=== PATIENT | male | born 1945 | race Caucasian/White ===

== ENCOUNTER → 2023-11-01 13:44 | Outpatient (REF) | payer OTHER, SELFPAY | LOC: HWRAD 13:44 | PROVIDERS: ATTENDING PHYSICIAN Internal Medicine Critical Care Medicine; FAMILY PHYSICIAN Internal Medicine | DX: R91.1 Solitary pulmonary nodule (principal) | CPT/HCPCS: 71250 ==

== ENCOUNTER → 2023-12-21 12:44 | Outpatient (REF) | payer OTHER, SELFPAY | LOC: HWRAD 12:44 | PROVIDERS: ATTENDING PHYSICIAN Internal Medicine Critical Care Medicine; FAMILY PHYSICIAN Internal Medicine | DX: J47.9 Bronchiectasis, uncomplicated (principal); R05.3 Chronic cough; R91.1 Solitary pulmonary nodule; J84.09 Other alveolar and parieto-alveolar conditions | CPT/HCPCS: 71250 ==

== ENCOUNTER → 2024-01-06 12:04 | Outpatient (REF) | payer OTHER, SELFPAY | LOC: PET 12:04 | PROVIDERS: ATTENDING PHYSICIAN Nurse Practitioner Adult Health | DX: R91.1 Solitary pulmonary nodule (principal) | CPT/HCPCS: 78816; A9552 ==

== ENCOUNTER 2024-01-21 10:28 | Emergency (ER) | payer OTHER, SELFPAY ==
[2024-01-21 10:51] VITALS: BP 112/66
--- NOTE | 2024-01-21 11:19 | ED.GENMED ---
History of Present Illness
General
Chief Complaint: Cough
Source: patient and spouse
Time Seen by Provider: 01/21/24 11:01
Travel History
Have you had any contact with someone who has COVID-19?: No
Do you have any symptoms of coronavirus? Fever > 100 degrees, chills, cough, shortness of breath, sore throat, loss of taste or smell, muscle aches, or headache?: No
History of Present Illness
History of Present Illness:
This patient is a very pleasant 79-year-old male who states that he developed a persistent cough approximately 4 weeks ago. He notes in the last 3 days that the cough has become much more pronounced and is now productive. No hemoptysis, fever,
chills, sore throat but he does note associated rhinorrhea. He denies abdominal pain, back pain. He does note a 'sore' feeling in the chest with cough only. He notes mild dyspnea. 2 weeks ago he was put on a Z-Sunil and felt that his symptoms got
a little better. Last night he went to an urgent care and was started on Levaquin. He had a chest x-ray that was consistent with 'probable scarring' but difficult to exclude an acute process underlying. Of note, patient has a history of Achilles
tendinopathy
Past History
Past History
ED Past Medical History: Other (Pulmonary fibrosis, pulmonary nodules)
ED Past Surgical History: Orthopedic
Social History
Tobacco: Former smoker
Alcohol: Occasional
Drug: None
Personal:
Living: with family
Phy Exam
Physical Exam
Physical Exam:
GENERAL: Alert , in no apparent distress
EYE: pupils equal and reactive
NECK: Supple, no significant adenopathy.
ENT: o/p clr, mmm.
CARDIAC: Regular rate and rhythm .
LUNGS: Equal breath sounds bilaterally, no acute respiratory distress, occasional wheezing noted, bibasilar rales mild, no rhonchi, occasional cough
ABDOMEN: Soft, without focal tenderness, no r/g, no cvat
NEUROLOGICAL: Alert and oriented, no focal neuro deficits
SKIN: Warm and dry, skin intact.
MUSCULOSKELETAL: No edema, well perfused.
PSYCH: Normal and appropriate interaction.
Course
Orders/Labs/Results
Orders:
Orders
01/21/24 11:22
Electrocardiogram (*1) Stat
Reason for Study: Other
Other Reason for Exam: pneumonia
Cardiac Monitoring- Treatment ONCE
EKG- Treatment ONCE
CR Chest - 2 Views Urgent
Comment:
Reason For Exam: hx pulm fibrosis, now cough
Pulse Ox/cont/shift [RESP] Stat
Quantity: 1
01/21/24 11:45
Complete Blood Count/No Diff Urgent
Comprehensive Metabolic Panel Urgent
Lactic Acid Q4H
Comment: CANCEL 2nd LACTIC ACID IF 1st LACTIC ACID IS LESS THAN 2
NT-proBNP Urgent
Troponin I Urgent
Blood Culture Q30M
KARINA Source: Blood/Venous
Specimen Description:
01/21/24 11:47
Blood Culture Q30M
KARINA Source: Blood/Venous
Specimen Description:
01/21/24 13:44
Amoxicillin 875 mg/Clav 125 mg [Augmentin 875 mg/125 mg] 1 tablet PO NOW STA
01/21/24 13:46
Cefdinir [Omnicef] 300 mg PO NOW STA
Doxycycline [Vibramycin] 100 mg PO NOW STA
Abnormal Lab Results
01/21/24
11:45
RBC 4.16 L 10^6/uL
(4.70-6.10)
MCV 98.6 H fL
(80.0-94.0)
MCH 34.1 H pg
(27.0-31.0)
MPV 10.5 H fL
(7.4-10.4)
01/21/24 11:45
01/21/24 11:45
Vital Signs
Initial and Last Documented VS:
Initial Vital Signs
Temp Pulse Resp BP Pulse Ox
98.0 F 75 16 112/66 98
01/21/24 10:51 01/21/24 10:51 01/21/24 10:51 01/21/24 10:51 01/21/24 10:51
Last Documented Vital Signs
Temp Pulse Resp BP Pulse Ox
98.0 F 67 19 124/68 95
01/21/24 10:51 01/21/24 13:30 01/21/24 13:30 01/21/24 13:00 01/21/24 13:00
*Critical Care Note
Total Time (30-74mins, 75-104mins- exclusive of procedures): Not Applicable
Update Note
Update Note:
Patient presents to the Emergency Department with __cough
Number and Complexity of Problems Addressed at the Encounter
� Chronic conditions affecting care:
� Acute Exacerbation and/or Progression of Chronic Illness:
� Differential Diagnosis includes: But not limited to medication related cough, reflux, pneumonia, bronchitis, etc.
Amount and/or Complexity of Data to be Reviewed and Analyzed
� I performed an independent evaluation of and my interpretation is:
EKG: Read by me, normal sinus rhythm, normal rate, normal axis, no ischemia
CT:
Xrays: Chest x-ray read by radiology, small right-sided pneumonia noted
Laboratory Studies: Generally unremarkable
Other:
� Review of other/old records reveals:
� Clinical information was obtained by an independent historian: who is at bedside
� Prescriptions/Medications Considered but not given:
� Further testing considered but not performed:
Risk of Complications and/or Morbidity or Mortality of Patient Management
� Social determinants of health affecting care:
� Discussion with other providers (PCP, Hospitalists, Consultants, etc):
� Escalation of care including admission/observation vs risk of discharge considered: I advised patient to immediately discontinue Levaquin that he was prescribed and to no longer take fluoroquinolones given his history of
Achilles tendinopathy.
1:49 PM extensive workup here, patient remains well-appearing, no hypoxia, no respiratory distress. I did discuss with him his findings and recommendation to change/add antibiotics. Case discussed with Dr. LEDBETTER aware of history physical etc.,
recommend cefdinir and Doxy x 5 to 7 days and then resume his Zithromax. This has been ordered
ED Attending Note
-
Portions of this chart may have been created with voice recognition software.� Occasional wrong word or��sound alike� substitutions may have occurred due to the inherent limitations of voice recognition software.
Discharge Plan
Departure
Patient Disposition: Home (Routine Discharge)
Date of Disposition: 01/21/24
Time of Disposition: 13:44
Patient with high blood pressure during this ER visit?: Yes
Condition: Good
Discharge Problem:
Pneumonia
Instructions: Pneumonia, Adult (DC), BLOOD PRESSURE
Prescriptions:
New
cefdinir 300 mg capsule
300 mg PO BID Qty: 14 0RF
doxycycline hyclate 100 mg capsule
100 mg PO BID 7 Days Qty: 14 0RF
No Action
sennosides [senna] 1 TABLET tablet
2 tab PO BID 0RF
acetaminophen [Tylenol Extra Strength] 500 MG tablet
1,000 mg PO Q6H Qty: 60 0RF
Rx Instructions:
Do not exceed >4000 mg daily.
docusate sodium 100 MG capsule
100 mg PO BID 0RF
tramadol 50 MG tablet
50 mg PO Q6HPRN PRN (Reason: moderate-severe pain) Qty: 30 0RF
Rx Instructions:
1 tab moderate pain or 2 if pain severe
Dx lami
ongoing therapy
cephalexin 500 MG capsule
500 mg PO Q6H 5 Days Qty: 20 0RF
Rx Instructions:
Start upon discharge and take every 6 hours until finished.
Take with probiotic.
Saccharomyces boulardii 250 MG capsule
250 mg PO BID Qty: 10 0RF
Rx Instructions:
Over the counter. Take while on Keflex.
If unavailable, choose another probiotic.
Referrals:
Liam Greco MD [Family Provider] -
Activity Restrictions/Additional Instructions:
PLEASE CONTACT YOUR PULMONARY DOCTOR THIS WEEK FOR PROMPT FOLLOW-UP. DISCONTINUE THE ZITHROMAX UNTIL YOU FINISH THE ANTIBIOTICS THAT HAD PRESCRIBED TO YOU TODAY, THEN RESUME THE ZITHROMAX. IF YOU DEVELOP PERSISTENT FEVER, INCREASING OR PERSISTENT
COUGH, TROUBLE BREATHING, CHEST PAIN, OR OTHER WORRISOME SIGNS, PLEASE RETURN TO THE ER IMMEDIATELY
Interventions
Interventions:
*Risk Screen - Suicide Last Done: 01/21/24 11:57
*General Assessment Last Done: 01/21/24 11:57
*Neglect/Abuse Screening Last Done: 01/21/24 11:57
ED- Fall Risk Assessment Last Done: 01/21/24 11:57
*ED COVID-19 Vaccine History Last Done: 01/21/24 10:51
ED- Pulmonary Assessment Last Done: 01/21/24 11:57
Discharge Date and Time
Print Language: SPANISH
[2024-01-21 11:51] VITALS: BMI 22.1
[2024-01-21 11:57] LABS: Hemoglobin 14.2 g/dL (13.0-18.0); Mean Corp Hgb Conc. 34.6 g/dL (33.0-37.0); Mean Corpuscular Hgb 34.1 pg (27.0-31.0); Mean Corpuscular Volume 98.6 fL (80.0-94.0); Mean Platelet Volume 10.5 fL (7.4-10.4); Platelet Count 259 10^3/uL (130-400); Red Blood Cell Count 4.16 10^6/uL (4.70-6.10); Red Cell Dist. Width 13.2 % (11.5-14.5); White Blood Cell Count 9.3 10^3/uL (4.8-10.8)
[2024-01-21 12:04] VITALS: BP 128/72
[2024-01-21 12:09] LABS: ALT (SGPT) 19 U/L (0-50); AST (SGOT) 28 U/L (17-59); Albumin 4.1 g/dl (3.5-5.0); Alkaline Phosphatase 73 U/L (38-126); Blood Urea Nitrogen 13 mg/dl (9-20); Calcium 9.6 mg/dl (8.4-10.2); Carbon Dioxide 26 mmol/L (22-30); Chloride 105 mmol/L (98-107); Estimated Creatinine Clearance 64 ml/min; Glucose 97 mg/dl (70-99); Lactic Acid 0.7 mmol/L (0.7-2.0); Potassium 4.4 mmol/L (3.5-5.1); Sodium 138 mmol/L (135-145); Total Bilirubin 0.7 mg/dl (0.2-1.3); eGFR > 60.00
[2024-01-21 12:20] LABS: Troponin I < 0.012 ng/ml
[2024-01-21 12:38] LABS: NT-proBNP 126 pg/ml
[2024-01-21 13:00] VITALS: BP 124/68
[2024-01-21] MEDS: OMNICEF 300 MG PO (13:58)
[2024-01-21] MEDS: VIBRAMYCIN 100 MG PO (13:58)
[2024-01-21 14:00] VITALS: BP 132/87
== END 2024-01-21 14:27 | disposition home or self-care (01) ==
LOC: EMR 10:28
PROVIDERS: EMERGENCY PHYSICIAN Emergency Medicine; FAMILY PHYSICIAN Internal Medicine; REFERRING PHYSICIAN Internal Medicine Critical Care Medicine
DX: J18.9 Pneumonia, unspecified organism (principal); R03.0 Elevated blood-pressure reading, without diagnosis of hypertension; J84.10 Pulmonary fibrosis, unspecified; Z87.891 Personal history of nicotine dependence; Z91.048 Other nonmedicinal substance allergy status
CPT/HCPCS: 99285; 94760; 71046; 80053; 83605; 83880; 84484; 85027; 87040; 93005

== ENCOUNTER → 2024-02-09 09:53 | Outpatient (REF) | payer OTHER, SELFPAY | LOC: HWRAD 09:53 | PROVIDERS: ATTENDING PHYSICIAN Internal Medicine Critical Care Medicine; FAMILY PHYSICIAN Internal Medicine | DX: J47.9 Bronchiectasis, uncomplicated (principal); R91.1 Solitary pulmonary nodule | CPT/HCPCS: 71250 ==

== ENCOUNTER 2024-02-29 06:15 | Day surgery (SDC) | payer OTHER, SELFPAY ==
[2024-02-27 08:45] LABS: INR 1.09
[2024-02-27 08:46] LABS: APTT 31.9 Sec (23.4-35.0)
[2024-02-27 14:02] VITALS: BMI 21.1
[2024-02-29] VITALS (9 sets, daily range): BP systolic 114–137; BP diastolic 66–99
== END 2024-02-29 11:45 | disposition home or self-care (01) ==
LOC: GI 06:15
PROVIDERS: ATTENDING PHYSICIAN Internal Medicine Critical Care Medicine; FAMILY PHYSICIAN Internal Medicine
DX: C34.11 Malignant neoplasm of upper lobe, right bronchus or lung (principal); C77.1 Secondary and unspecified malignant neoplasm of intrathoracic lymph nodes; R91.8 Other nonspecific abnormal finding of lung field; R59.0 Localized enlarged lymph nodes; Z87.891 Personal history of nicotine dependence
CPT/HCPCS: 31629; 31623; 31625; 31624; 31654; 31627; 88173; 88305; 71045; 76000; 81459; 85610; 85730; 87015; 87070; 87102; 87116; 87205; 88112; 88333; 88341; 88342; 94640; C1887

== ENCOUNTER 2024-03-13 10:11 | Outpatient (RCR) | payer OTHER, SELFPAY | END 2024-03-13 23:59 | disposition home or self-care (01) | LOC: RST 10:11 | PROVIDERS: ATTENDING PHYSICIAN Internal Medicine Critical Care Medicine; FAMILY PHYSICIAN Internal Medicine | DX: R13.14 Dysphagia, pharyngoesophageal phase (principal) | CPT/HCPCS: 92610 ==

== ENCOUNTER → 2024-03-26 08:14 | Outpatient (REF) | payer OTHER, SELFPAY ==
[2024-03-26 08:47] VITALS: BP 137/64; BP_SYST 65
[2024-03-26] MEDS: ANCEF 10 IV (08:56)
[2024-03-26 10:50] VITALS: BP 123/61; BP_SYST 72
[2024-03-26 11:10] VITALS: BP 128/59; BP_SYST 68
== END ==
LOC: RADI 08:14
PROVIDERS: ATTENDING PHYSICIAN Internal Medicine Hematology & Oncology; FAMILY PHYSICIAN Internal Medicine
DX: C34.11 Malignant neoplasm of upper lobe, right bronchus or lung (principal)
CPT/HCPCS: 36561; 76937; 77001; 99152; 99153; C1788

== ENCOUNTER 2024-04-11 17:02 | Observation (INO) | payer OTHER, SELFPAY ==
[2024-04-11 13:42] VITALS: BMI 21.7
[2024-04-11 13:49] VITALS: BP 112/75
--- NOTE | 2024-04-11 13:55 | ED.PDOC.TRB ---
ED Provider Triage
-
Patient seen by provider in Triage?: Seen in Triage
A medical screening examination has been initiated by a qualified medical provider. Based on the assessment performed at this time, it has been determined that an emergent medical condition may exist and the patient has been informed that further
medical evaluation and possible additional diagnostic testing may be needed.
HPI: This is a medical evaluation conducted in person to initiate diagnostic evaluation and provide initial therapeutics. Please see further documentation by the treating clinician.
GENERAL: Alert ,tearful
EYE: No visual abnormalities.
NECK: Trachea midline
ENT: No visible abnormalities.
LUNGS: No acute respiratory distress
NEUROLOGICAL: Alert and oriented
SKIN: no visible lesions.
MUSCULOSKELETAL: Moving extremities normally
PSYCH: Normal and appropriate interaction.
79-year-old male being sent in by radiology with concerning findings on MRI of potential occipital and temporal and frontal acute to subacute stroke. Patient does have intermittent vague visual symptoms as well as generalized weakness but no
focality to initial neurologic examination during triage. Patient is generally well-appearing. These findings and my initial exam was discussed with neurology. Neurology is requesting CT angiogram of the head and neck to supplement initial
imaging. Also consideration of anticoagulation that will need to be discussed with oncology considering possibility of hypercoagulable state due to cancer history. CTA ordered pending additional provider assessment.
[2024-04-11 14:13] LABS: % Basophils 0.5 % (0-2); % Eosinophils 4.1 % (0-6); % Immature Granulocytes 0.2 % (0-0.5); % Lymphocytes 25.6 % (20.5-51.1); % Monocytes 7.8 % (1.7-9.3); % Neutrophils 61.8 % (42.2-75.2); Absolute Eosinophils 0.2 10^3/uL (0-0.7); Absolute Lymphocytes 1.1 10^3/uL (1.2-3.4); Absolute Monocytes 0.3 10^3/uL (0.1-0.6); Absolute Neutrophils 2.5 10^3/uL (1.4-6.5); Hematocrit 38.4 % (39.0-52.0); Hemoglobin 12.9 g/dL (13.0-18.0); Mean Corp Hgb Conc. 33.6 g/dL (33.0-37.0); Mean Corpuscular Hgb 32.7 pg (27.0-31.0); Mean Corpuscular Volume 97.5 fL (80.0-94.0); Mean Platelet Volume 11.1 fL (7.4-10.4); Nucleated Red Blood Cells % 0 % (-); Platelet Count 112 10^3/uL (130-400); Red Blood Cell Count 3.94 10^6/uL (4.70-6.10); Red Cell Dist. Width 12.5 % (11.5-14.5); White Blood Cell Count 4.1 10^3/uL (4.8-10.8)
[2024-04-11 14:30] LABS: INR 1.07; PT 13.9 Sec (11.4-14.6)
[2024-04-11 14:31] LABS: APTT 31.7 Sec (23.4-35.0)
[2024-04-11 14:40] LABS: ALT (SGPT) 24 U/L (0-50); AST (SGOT) 26 U/L (17-59); Albumin 4.2 g/dl (3.5-5.0); Alkaline Phosphatase 69 U/L (38-126); Blood Urea Nitrogen 21 mg/dl (9-20); Calcium 9.2 mg/dl (8.4-10.2); Carbon Dioxide 25 mmol/L (22-30); Chloride 103 mmol/L (98-107); Estimated Creatinine Clearance 68 ml/min; Glucose 118 mg/dl (70-99); Potassium 4.7 mmol/L (3.5-5.1); Sodium 139 mmol/L (135-145); Total Bilirubin 0.6 mg/dl (0.2-1.3); Total Protein 6.9 g/dl (6.3-8.2); eGFR > 60.00
[2024-04-11 15:00] VITALS: BP 99/63
[2024-04-11] MEDS: PLAVIX 75 MG PO (15:24)
[2024-04-11] MEDS: ASPIRIN 325 MG PO (15:24)
--- NOTE | 2024-04-11 16:18 | ED.GENMED ---
History of Present Illness
General
Chief Complaint: Abnormal Lab Value
Source: patient, spouse and physician (Oncologist who called ahead)
Exam Limitations: none
Time Seen by Provider: 04/11/24 15:03
Nursing documentation reviewed up to this point in time: agreed with
History of Present Illness
History of Present Illness:
79-year-old male with history as documented notable for small cell lung cancer (follows with Dr. Manzanares for oncology) who presents to the emergency department for evaluation of dizziness and fatigue, visual disturbances; had outpatient MRI today that
showed acute versus subacute stroke. Patient reports that he received first round of chemotherapy for lung cancer last week. He says over the past few days he has noticed significant fatigue and lack of strength. He says that he has had some
dizziness and balance issues. He says that he has been having visual disturbances�no vision loss but says that he has noticed some floaters and flashes in his peripheral vision. He had an outpatient MRI this morning to evaluate for brain
metastasis due to the symptoms and MRI showed acute versus subacute stroke. Referred to the ER for evaluation. He denies any focal weakness or numbness. Denies any change in his speech. He denies any falls or head trauma. He is not on any blood
thinners. Denies any history of A-fib.
Past History
Past History
ED Past Medical History: Other (Pulmonary fibrosis, pulmonary nodules)
ED Past Surgical History: Orthopedic
Social History
Tobacco: Former smoker
Alcohol: Occasional
Drug: None
Personal:
Living: with family
Review of Systems
Review of Systems
All Other Systems: ROS reviewed and negative except as documented in HPI and ROS
Constitutional: Reports fatigue; Denies fever
Respiratory: Denies trouble breathing
Cardiac: Denies chest pain or palpitations
ABD/GI: Denies abdominal pain or nausea
: Denies flank pain
Musculoskeletal: Denies neck pain or back pain
Neurological: Reports dizzy and other (Visual disturbance); Denies headache, weakness or numbness
Phy Exam
Physical Exam
Physical Exam:
General: Awake, alert, oriented x3; no acute distress
Head: Normocephalic, atraumatic
Eyes: Conjunctiva normal, EOMI without nystagmus, pupils equal round and reactive to light bilaterally, visual duran are intact
Throat: Airway intact, handling secretions
Neck: Trachea midline, supple without meningismus
Lungs: Clear to auscultation bilaterally, no wheezing, rales, rhonchi
Heart: Regular rate and rhythm, no murmurs, gallops, or rubs
Neuro: Cranial nerves intact 2 through 12, speech fluid with no dysarthria or aphasia, no limb ataxia, motor and sensory function is intact and symmetric upper and lower extremities
Skin: no rash
Extremities: No edema in extremities, equal pulses in all extremities
Scores
NIH Stroke Score
Level of Consciousness: 0 - Alert
LOC Questions: 0-Answers both correctly
LOC Commands: 0-Performs both correctly
Best Horizontal Gaze: 0-Normal
Visual Duran: 0=Normal, no visual loss
Facial Palsy: 0=Normal, symmetrical
Motor - Right Arm: 0=No drift 10 seconds
Motor - Left Arm: 0=No drift 10 seconds
Motor - Right Le-No drift 5 seconds
Motor - Left Le-No drift 5 seconds
Limb Ataxia: 0-Absent
Sensation: 0-Normal
Best Language: 0-No aphasia
Dysarthria: 0-Normal
Extinction and Inattention: 0-No abnormality
Total Score:: 0
Thrombolytic Contraindication
Inclusion and Exclusion criteria reviewed: Yes
Reasons for NON-Tx with Thrombolytics ABSOLUTE Exclusions: Greater than 4.5 hrs from onset of sxs
Heart Failure Risk
Heart Failure Risk Score: Not Applicable
Heart Score for Chest Pain Patients
STEMI patient?: Not applicable
Withdrawal Assessment of Alcohol
Withdrawal Assessment Completed?: Not applicable
Course
Orders/Labs/Results
Orders:
Orders
04/11/24 13:51
Bedside Glucose- Treatment ONCE
04/11/24 13:52
Electrocardiogram (*1) Stat
Reason for Study: Other
Other Reason for Exam: neuro symptoms
EKG- Treatment ONCE
04/11/24 14:05
Complete Blood Count/With Diff Urgent
Comprehensive Metabolic Panel Urgent
PTT Urgent
Prothrombin Time Urgent
04/11/24 15:12
NEUROLOGY CONSULT Urgent
Consulting Provider: Cesia Hagen
Was physician already notified: Yes
Aspirin 325 mg PO NOW STA
Clopidogrel Bisulfate [Plavix] 75 mg PO NOW STA
Abnormal Lab Results
04/11/24
14:05
WBC 4.1 L 10^3/uL
(4.8-10.8)
RBC 3.94 L 10^6/uL
(4.70-6.10)
Hgb 12.9 L g/dL
(13.0-18.0)
Hct 38.4 L %
(39.0-52.0)
MCV 97.5 H fL
(80.0-94.0)
MCH 32.7 H pg
(27.0-31.0)
Plt Count 112 L 10^3/uL
(130-400)
MPV 11.1 H fL
(7.4-10.4)
Absolute Lymphs (auto) 1.1 L 10^3/uL
(1.2-3.4)
BUN 21 H mg/dl
(9-20)
Glucose 118 H mg/dl
(70-99)
04/11/24 14:05
04/11/24 14:05
Vital Signs
Initial and Last Documented VS:
Initial Vital Signs
Temp Pulse Resp BP Pulse Ox
36.9 C 76 18 112/75 97
04/11/24 13:49 04/11/24 13:49 04/11/24 13:49 04/11/24 13:49 04/11/24 13:49
Last Documented Vital Signs
Temp Pulse Resp BP Pulse Ox
36.9 C 85 16 99/63 96
04/11/24 13:49 04/11/24 15:00 04/11/24 15:00 04/11/24 15:00 04/11/24 15:00
MDM/Problems Addressed
Differential Diagnosis Includes:
CVA
MDM/Problems Addressed:
79-year-old male presents with dizziness and visual disturbances, fatigue in the setting of recent chemotherapy; outpatient MRI today showed acute versus subacute CVA. Vitals normal. Exam as above. Discussed with neurology�recommended MRA, will
treat with aspirin and Plavix. Admit for continued evaluation and workup of acute versus subacute stroke. Case discussed with hospitalist for admission.
Chronic conditions affecting care:
Lung cancer
*Radiology
Radiology exam reviewed: radiology read reviewed
*Pulse Oximetry
Patient hypoxic: no
*EKG
Interpreted by ED Provider?: Yes
Heart Rate: 86
Rate: normal
Rhythm: sinus
[place]: normal axis
Interval: normal interval
QRS Pattern: normal QRS
Ischemia: non-specific ST changes
*Critical Care Note
Total Time (30-74mins, 75-104mins- exclusive of procedures): Not Applicable
Data Reviewed
Review of Other/Old Records Reveals: Labs and Records
Source: patient, records and physician (Oncologist called ahead)
Patient Management
Discussion with other providers: Hospitalist (Discussed with hospitalist) and Director Of Corporate Communications (Discussed with neurology)
Escalation/DeEscalation of care consider admission/obs:
Admission indicated
ED Attending Note
-
Portions of this chart may have been created with voice recognition software.� Occasional wrong word or��sound alike� substitutions may have occurred due to the inherent limitations of voice recognition software.
Discharge Plan
Departure
Patient Disposition: Admit
Date of Disposition: 04/11/24
Time of Disposition: 16:23
Admit to doctor: Do
Presentation/result/management discussed w/ accepting MD/DO: Hospitalist
Discharge Problem:
CVA (cerebrovascular accident)
Prescriptions:
No Action
azithromycin 250 mg Tablet
250 mg PO DIRECTED
Rx Instructions:
M, W, F
albuterol sulfate 1.25 mg/3 mL Solution For Nebulization
1.25 mg INHALATION HS
fluticasone propion-salmeterol [Advair HFA] 230-21 mcg/actuation Hfa Aerosol Inhaler
1 puff INHALATION DAILY
acetaminophen [Tylenol Extra Strength] 500 MG tablet
1,000 mg PO Q6H
Rx Instructions:
Do not exceed >4000 mg daily.
calcium carbonate [Tums] 200 mg calcium (500 mg) Tablet,Chewable
200 mg PO PRN PRN (Reason: GERD)
lorazepam [Ativan] 0.5 mg Tablet
0.5 mg PO HS PRN (Reason: sleep/anxiety)
mecobalamin (vitamin B12) [B12 Active] 1,000 mcg Tablet,Chewable
1,000 mcg PO DIRECTED
Pepto-Bismol Ultra 525 mg Tablet
525 mg PO PRN PRN (Reason: GI)
doxycycline hyclate 100 mg Capsule
100 mg PO BID
cefdinir 300 mg Capsule
300 mg PO BID
Interventions
Interventions:
*Risk Screen - Suicide Last Done: 04/11/24 13:55
*General Assessment Last Done: 04/11/24 13:55
*Neglect/Abuse Screening Last Done: 04/11/24 13:55
ED- Fall Risk Assessment Last Done: 04/11/24 14:34
*ED COVID-19 Vaccine History Last Done: 04/11/24 14:34
Discharge Date and Time
Print Language: MALAYSIAN
--- NOTE | 2024-04-11 16:57 | HPS.HSE ---
Family Physician
-
Family Physician: Artemio Manzanares
Chief Complaint
-
visual symptoms
History of Present Illness
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
with flashes of light in his peripheral vision, fatigue, since starting chemotherapy last week. Patient had outpatient MRI today which showed acute versus subacute stroke and was told to come to the hospital.
Patient received first round of chemotherapy for lung cancer last week. He follows Dr. Manzanares.
Over the past few days he has noted significant fatigue and lack of strength. He has had some dizziness and balance dysfunction. He has noted some floaters and flashes in his peripheral vision. He had outpatient MRI this morning evaluate for
brain metastases which showed acute versus subacute stroke. He was referred to the emergency room. He denies any focal weakness or numbness or difficulty speaking or swallowing. He denies any falls or head trauma.
He denies any nausea vomiting or diarrhea. He denies any fevers or chills. He denies any cough. He has been having indigestion and burping since starting chemotherapy.
Denies any smoking or alcohol use.
Medical History
Past Medical History
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
Past Surgical History: Reports Other ( Orthopedic)
Social History
Tobacco: Non-smoker
Alcohol: None
Drug: None
Family History
Family History: Not pertinent
Allergies / Home Medications
Allergies reflects when Allergies were last updated in [facility].
Home Medications with original date entered in [facility]
Allergy/Medication List:
Allergies
Allergy/AdvReac Type Severity Reaction Status Date / Time
pollen extracts Allergy Sinus Verified 04/11/24 13:47
congestion
hydromorphone [From Dilaudid] AdvReac Nausea / Verified 04/11/24 13:47
Vomiting
Home Medications
acetaminophen 500 mg tablet (Tylenol Extra Strength) 1,000 mg PO Q6HPRN PRN mild pain 02/28/24
albuterol sulfate 1.25 mg/3 mL solution for nebulization 1.25 mg inhalation R BIDPRN PRN sob 02/28/24
azithromycin 250 mg tablet 250 mg PO MOWEFR 02/28/24
fluticasone propionate 230 mcg-salmeterol 21 mcg/actuation HFA inhaler (Advair HFA) 1 puff inhalation R BID 02/28/24
lorazepam 0.5 mg tablet (Ativan) 0.5 mg PO HSPRN PRN sleep/anxiety 02/28/24
carbamide peroxide 6.5 % ear drops 5 drp LEFT EAR DAILYPRN PRN earwax 04/11/24
dexamethasone 4 mg tablet 8 mg PO DAILYPRN PRN take day before and day afr Tx 04/11/24
folic acid 1 mg tablet 1 mg PO DAILY 04/11/24
ibuprofen 200 mg tablet 400 mg PO Q6HPRN PRN mild pain 04/11/24
lidocaine-prilocaine 2.5 %-2.5 % topical cream 1 applic topical DAILYPRN PRN apply before port access 04/11/24
omeprazole 20 mg capsule,delayed release 20 mg PO BID 04/11/24
Review of Systems
-
History Source: Patient
A 12 point ROS was completed and negative except as noted: Yes
Constitutional: Reports No Symptoms
EENT: Reports No Symptoms
Respiratory: Reports No Symptoms
Cardiac: Reports No Symptoms
Abdomen/GI: Reports No Symptoms
: Reports No Symptoms
Musculoskeletal: Reports No Symptoms
Skin: Reports No Symptoms
Neurological: Reports See HPI
Endocrine: Reports No Symptoms
Hematologic/Lymphatic: Reports No Symptoms
Psych: Reports No Symptoms
Physical Exam
Vital Signs
Vital Signs
Temp Pulse Resp BP Pulse Ox
98.4 F 85 16 99/63 96
04/11/24 13:49 04/11/24 15:00 04/11/24 15:00 04/11/24 15:00 04/11/24 15:00
Physical Exam
General: Well Developed, Well Nourished and No Apparent Distress
HEENT: NormoCephalic, Moist mucous membranes and Atraumatic
Respiratory: Clear
Cardiac: S1/S2 and Regular Rhythm; No Murmur or Rub
GI: Soft, Non Tender, Non Distended and Normal Bowel Sounds; No Organomegaly
Rectal: Deferred by Provider
Musculoskeletal: No Clubbing, No Cyanosis and No Edema
Skin: No Rash
Neuro: Nonfocal/grossly intact
Laboratory Results
-
04/11/24 14:05
04/11/24 14:05
Laboratory Results
PT 13.9 Sec (11.4-14.6) 04/11/24 14:05
INR 1.07 04/11/24 14:05
APTT 31.7 Sec (23.4-35.0) 04/11/24 14:05
Total Bilirubin 0.6 mg/dl (0.2-1.3) 04/11/24 14:05
AST 26 U/L (17-59) 04/11/24 14:05
ALT 24 U/L (0-50) 04/11/24 14:05
Alkaline Phosphatase 69 U/L (38-126) 04/11/24 14:05
Data Reviewed
-
Lab Data: Labs Reviewed by me
Old Records: Reviewed
Impression/Plan
-
IMPRESSION:
PLAN:
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
# Small foci of acute/subacute infarct involving posterior medial right occipital lobe, anterior medial right frontal lobe
-No neurological deficits on examination
-Telemetry
-EKG shows normal sinus rhythm
-Aspirin and Plavix
-Check A1c and lipid panel
-Check MRA head and neck
-Check echo
-Neurology consulted
-PT/OT
Constipation
-Had bowel movement this morning
-MiraLAX if needed
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
-Continue prophylactic azithromycin
History of ocular migraines
Left ear cerumen impaction
-Continue Debrox
Idiopathic pulmonary fibrosis
History of asymptomatic sinus bradycardia
Lumbar spinal stenosis
-continue ibuprofen PRN
Hyperlipidemia
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
GERD
-Continue omeprazole
Anxiety
-Continue Ativan
DNR/DNI
DVT prophylaxis�SCDs
Regular diet
[2024-04-11] MEDS: ADVAIR HFA 230/21 MCG INHALER 1 PUFF INH (19:29)
[2024-04-11 19:37] VITALS: BP 104/61
[2024-04-11] MEDS: PROTONIX 40 MG PO (21:21)
[2024-04-11] MEDS: ZITHROMAX 250 MG PO (21:21)
[2024-04-11 21:30] VITALS: BP 120/76
[2024-04-11 22:00] VITALS: BP 127/64
[2024-04-12] VITALS (8 sets, daily range): BP systolic 120–130; BP diastolic 64–81; PULSE 73–78
[2024-04-12 06:34] LABS: Hemoglobin 11.9 g/dL (13.0-18.0); Mean Corpuscular Hgb 33.7 pg (27.0-31.0); Mean Corpuscular Volume 99.2 fL (80.0-94.0); Mean Platelet Volume 11.5 fL (7.4-10.4); Red Blood Cell Count 3.53 10^6/uL (4.70-6.10); Red Cell Dist. Width 12.4 % (11.5-14.5); White Blood Cell Count 3.5 10^3/uL (4.8-10.8)
[2024-04-12 07:11] LABS: Blood Urea Nitrogen 16 mg/dl (9-20); Calcium 8.9 mg/dl (8.4-10.2); Carbon Dioxide 26 mmol/L (22-30); Chloride 104 mmol/L (98-107); Estimated Creatinine Clearance 77 ml/min; Glucose 90 mg/dl (70-99); HDL Cholesterol 59 mg/dl; LDL Cholesterol, Calculated 102 mg/dl; Potassium 4.1 mmol/L (3.5-5.1); Sodium 138 mmol/L (135-145); Total Cholesterol 173 mg/dl (50-199); Triglyceride 62 mg/dl (10-149); Very Low Density Lipoprotein 12 mg/dl (0-30); eGFR > 60.00
[2024-04-12] MEDS: ADVAIR HFA 230/21 MCG INHALER 1 PUFF INH (08:13)
[2024-04-12 08:14] LABS: Platelet Count 89 10^3/uL (130-400)
[2024-04-12 08:15] LABS: % Basophils 0.3 % (0-2); % Eosinophils 6.8 % (0-6); % Immature Granulocytes 0.3 % (0-0.5); % Lymphocytes 34.8 % (20.5-51.1); % Monocytes 12.8 % (1.7-9.3); Absolute Eosinophils 0.2 10^3/uL (0-0.7); Absolute Lymphocytes 1.2 10^3/uL (1.2-3.4); Absolute Monocytes 0.5 10^3/uL (0.1-0.6); Absolute Neutrophils 1.6 10^3/uL (1.4-6.5); Nucleated Red Blood Cells % 0 % (-)
--- NOTE | 2024-04-12 08:32 | CON.NEURO4 ---
Addendum entered and electronically signed by Cesia Hagen DO 04/12/24 17:47:
I have personally examined the patient. I agree with the TESTS SUPERINTENDENT's Note.
My addenda: 79 year-old male with recently diagnosed SCLC, sent to ER after MRI brain showed acute/subacute ischemic stroke. Patient states that imaging was done after he developed transient visual distortions but in his R field of vision
bilaterally. Also has at least a decade history of migraine with visual aura, although it never followed this pattern. Anatomically these visual changes do not fit with stroke location. Exam is unremarkable--NIHSS is 0.
1. MRI brain 04/11/24: Small focus of acute to subacute infarction within the posteromedial right cerebellar hemisphere. Several small focus of acute to subacute infarction involving the posteromedial right occipital lobe. Several small focus of
acute to subacute infarction involving the anteromedial right frontal lobe. No evidence for metastatic disease to the brain.
2. MRA Head/Neck 04/12/24: No significant carotid plaque formation or hemodynamically significant stenosis, bilaterally.
Strokes involve anterior and posterior circulations, likely embolic in etiology due to cancer-related hypercoagulable state. No significant stenosis on MRAs. No thrombus/CSE seen on echo.
He has been started on DAPT. Can consider switch to a DOAC after 3 days total of DAPT given small stroke size given risk of hemorrhagic conversion--will leave this decision to Dr. Manzanares, his outpatient oncologist. Contacted on-call
hematology/oncology who deferred the decision back to me. I then messaged Dr. Manzanares a summary of his hospitalization. Reviewed with hospitalist. Patient is stable for d/c home from my standpoint.
Original Note:
Documented by User: Susie Vaughn NP 04/12/24 13:51
Consultation - Neurology 4
-
CONSULTING PHYSICIAN: Cesia Hagen DO
REFERRING PHYSICIAN: ER/Dr. Lipscomb
DICTATED BY: RASHEL Sandra
DATE/TIME OF REQUEST: 04/11/24
DATE/TIME OF CONSULTATION: 04/12/24
Reason for Consultation: Incidental stroke finding
History of Present Illness:
This is a 79-year-old right-handed male who was recently diagnosed with small cell lung cancer who has presented to the hospital on 04/11/24 by referral of his oncologist Dr. Manzanares for finding of acute/subacute ischemic stroke on MRI brain. Patient
reports about a 5 week history of new, frequent cough in January 2024 which led to having a CT chest that demonstrates new pulmonary nodules. Bronchoscopy on 02/29/24 demonstrated small cell lung cancer. He had a port placed and received his first round
of chemotherapy on 04/03/24, his reports this was Keytruda, Carboplatin, and Imuran. He is not undergoing radiation. He is a somewhat vague historian but following his first dose of chemo he reports having many side effects including rash, taste
change, sore throat, and hiccups. Additionally, he reports noticing that his balance was more 'off' than usual and new vision changes. He reports predominantly in his right eye peripheral vision he started seeing streams of color, and his vision has
seemed 'hyper focused.' He does not a history of ocular migraines involving seeing wavy lines in both eyes, rarely slight vision loss, no associated headache. His vision change last week was not similar to his previous ocular migraines. He reported
his symptoms to his oncology office, which prompted MRI brain to rule out brain metastases. MRI brain was completed yesterday (04/11/24) and demonstrates an acute/subacute small focus of infarction in the right cerebellum, right occipital lobe, and
right frontal lobe; no metastatic disease. NIHSS on arrival here was 0. He is not a candidate for TNK/IAT due to outside of time window/NIHSS 0. He denies any headache, dizziness, speech/swallow difficulty, numbness, focal weakness, chest pain,
palpitations, and shortness of breath. He denies any history of TIA or stroke in the past and he was not taking any blood-thinning medications.
Past Medical History: Ocular migraines, small cell lung cancer, pulmonary fibrosis, pulmonary nodules, right glaucoma, left Achilles tendonitis, GERD, melanoma, dysphagia
Surgical History: Lumbar laminectomy, melanoma removed from R chest wall, b/l cataract extraction, bronchoscopy, power port placement
Family History: Reviewed and noncontributory.
Social History: Former smoker. Occasional alcohol. Denies illicit drug use.
Allergies: Hydromorphone, pollen extracts.
Home Medications: See below.
Review of Symptoms:
Patient denies any fever, headache, chest pain, shortness of breath, GI or symptoms.
�Per the HPI.�All systems are reviewed negative except above.
Physical Exam:
The patient is afebrile, abdomen is nondistended, breathing is unlabored, skin is warm and dry, no edema.
NIH Stroke Scale:
I performed the NIH stroke scale on the patient on 04/12/24 at 1300. The patient scored 0 points on the NIH stroke scale assessment, which were assigned as follows: See below.
Neurologic Examination:
The patient is awake, alert and oriented x 3. He is able to follow commands and answer questions appropriately. There is no aphasia or dysarthria. On cranial nerve assessment, pupils are 3 mm bilateral, round and reactive to light and
accommodation. Visual villeda are full. Extraocular movements are intact. Facial sensations are intact and bilaterally symmetrical, there is no facial asymmetry. Hearing is intact bilaterally to normal conversation volume. Tongue palate and uvula are
midline. Sternocleidomastoid strengths are full bilaterally. Motor strengths are 5/5 bilateral upper and lower extremities on medical research [place] scale. There is no drift or involuntary movement noted. Babinski is absent bilaterally. Sensations
of temperature and vibration are moderately reduced in distal bilateral lower extremities. There was no extinction noted on double simultaneous stimulation. Coordination is intact by finger to nose bilaterally.
Lab Results: See below.
Neuro Imaging:
1. MRI brain 04/11/24: Small focus of acute to subacute infarction within the posteromedial right cerebellar hemisphere. Several small focus of acute to subacute infarction involving the posteromedial right occipital lobe. Several small focus of
acute to subacute infarction involving the anteromedial right frontal lobe. No evidence for metastatic disease to the brain.
2. MRA Head/Neck 04/12/24: No significant carotid plaque formation or hemodynamically significant stenosis, bilaterally.
Differentials for the patient's presentation include:
1. Subacute small ischemic right hemisphere ischemic infarcts in the occipital, frontal, and cerebellum. MRA negative for LVO disease. Etiology likely hypercoagulable state in the setting of cancer, possibly cardioembolic.
2. Small cell lung cancer, first dose of chemo prior to symptom onset.
Patient has the following risk factors for their symptoms: lung cancer, age
IV Tenecteplase/IAT candidacy: Not a candidate due to outside of time window/no LVO.
Recommendations:
-Continue DAPT with aspirin 81mg and Plavix 75mg daily for 21 days, after 21 days stop Plavix and continue aspirin 81mg daily only. Will need oncology opinion on if this patient would benefit from anticoagulation therapy instead of antiplatelet
therapy for stroke prevention.
-Goal normotension.
-TTE pending.
-LDL goal <70. LDL is 102. Atorvastatin 40mg daily initiated.
-Goal normoglycemia, hbA1c is 5.5.
-NIHSS and neurological checks per unit guidelines.
-Provide patient with a stroke education packet.
-Checking blood work for metabolic abnormalities that could contribute to neuropathy.
-DVT prophylaxis.
-PT/OT/ST evaluations.
-Patient can follow with Neurology as an outpatient as-needed, may see the TESTS SUPERINTENDENT or one of the physicians.
Discussed patient care with: Dr. Hagen, the patient, patient's family
Vital Signs and Labs
-
Vital Signs and Labs:
Vital Signs
Temp Pulse Resp BP Pulse Ox
98.2 F 73 18 120/75 97
04/12/24 07:00 04/12/24 08:15 04/12/24 08:15 04/12/24 07:00 04/12/24 07:00
Lab Results
04/12/24 04:55
04/12/24 04:55
PT 13.9 Sec (11.4-14.6) 04/11/24 14:05
INR 1.07 04/11/24 14:05
APTT 31.7 Sec (23.4-35.0) 04/11/24 14:05
Sodium 138 mmol/L (135-145) 04/12/24 04:55
Potassium 4.1 mmol/L (3.5-5.1) 04/12/24 04:55
BUN 16 mg/dl (9-20) 04/12/24 04:55
Glucose 90 mg/dl (70-99) 04/12/24 04:55
Calcium 8.9 mg/dl (8.4-10.2) 04/12/24 04:55
LDL Cholesterol, Calc 102 mg/dl 04/12/24 04:55
Medications
-
Active Medications
Generic Name Dose Route Start Last Admin
Trade Name Freq PRN Reason Stop Dose Admin
Acetaminophen 1,000 mg 04/11/24 18:20
Acetaminophen 500 Mg Tablet PO 05/09/24 18:19
Q6HPRN PRN
mild pain
Albuterol Sulfate 1.25 mg 04/11/24 18:20
Albuterol Nebs 1.25 Mg/3 Ml Ampul INH
R BIDPRN PRN
sob
Protocol
Aspirin 81 mg 04/12/24 08:00
Aspirin 81 Mg Chewable Tablet PO 05/10/24 07:59
DAILY BALDEMAR
Azithromycin 250 mg 04/11/24 20:00 04/11/24 21:21
Azithromycin 250 Mg Tablet PO 250 mg
MoWeFr@2000 [facility] Administration
Carbamide Peroxide 0 drop 04/11/24 18:20
Carbamide Peroxide 6.5% (Otic Solution) 15 Ml Bottle LEFT EAR 05/09/24 18:19
DAILYPRN PRN
earwax
Clopidogrel Bisulfate 75 mg 04/12/24 08:00
Clopidogrel 75 Mg Tablet PO 05/10/24 07:59
DAILY BALDEMAR
Folic Acid 1 mg 04/12/24 08:00
Folic Acid 1 Mg Tablet PO 05/10/24 07:59
DAILY BALDEMAR
Ibuprofen 400 mg 04/11/24 20:04
Ibuprofen 400 Mg Tablet PO 05/09/24 20:03
Q6HPRN PRN
MODERATE PAIN
Lidocaine/Prilocaine 0 gram 04/11/24 18:20
Lidocaine 2.5%/Prilocaine 2.5% (Cream) 5 Gram Tube TOPICAL 05/09/24 18:19
DAILYPRN PRN
apply before port access
Lorazepam 0.5 mg 04/11/24 18:20
Lorazepam 0.5 Mg Tablet PO 05/09/24 18:19
HSPRN PRN
sleep/anxiety
Pantoprazole Sodium 40 mg 04/11/24 20:00 04/11/24 21:21
Pantoprazole 40 Mg Delayed Release Tablet PO 05/09/24 19:59 40 mg
BID BALDEMAR Administration
Polyethylene Glycol 17 grams 04/11/24 18:20
Polyethylene Glycol Powder 17 Grams Packet PO 05/09/24 18:19
DAILYPRN PRN
constipation
Fluticasone/Salmeterol 1 puff 04/11/24 20:00 04/12/24 08:13
Advair Hfa 230/21 Inhaler INH 05/09/24 19:59 1 puff
R BID BALDEMAR Administration
Protocol
Sodium Chloride 0 flush 04/11/24 19:00
Sodium Chloride 0.9% (Flush) Syringe IV 05/09/24 18:59
PER PROTOCOL BALDEMAR
Home Medications
�Medication �Instructions �Recorded
acetaminophen 500 mg tablet 1,000 mg PO Q6HPRN PRN mild pain 02/28/24
(Tylenol Extra Strength)
albuterol sulfate 1.25 mg/3 mL 1.25 mg inhalation R BIDPRN PRN sob 02/28/24
solution for nebulization
azithromycin 250 mg tablet 250 mg PO MOWEFR 02/28/24
fluticasone propionate 230 1 puff inhalation R BID 02/28/24
mcg-salmeterol 21 mcg/actuation
HFA inhaler (Advair HFA)
lorazepam 0.5 mg tablet (Ativan) 0.5 mg PO HSPRN PRN sleep/anxiety 02/28/24
carbamide peroxide 6.5 % ear drops 5 drp LEFT EAR DAILYPRN PRN earwax 04/11/24
dexamethasone 4 mg tablet 8 mg PO DAILYPRN PRN take day 04/11/24
before and day afr Tx
folic acid 1 mg tablet 1 mg PO DAILY 04/11/24
ibuprofen 200 mg tablet 400 mg PO Q6HPRN PRN mild pain 04/11/24
lidocaine-prilocaine 2.5 %-2.5 % 1 applic topical DAILYPRN PRN 04/11/24
topical cream apply before port access
omeprazole 20 mg capsule,delayed 20 mg PO BID 04/11/24
release
NIH Stroke Score
Subsequent NIH Scale
Date of Subsequent NIH Scale: 04/12/24
Time of Subsequent NIH Scale: 13:00
NIH Stroke Score
Level of Consciousness: 0 - Alert
LOC Questions: 0-Answers both correctly
LOC Commands: 0-Performs both correctly
Best Horizontal Gaze: 0-Normal
Visual Villeda: 0=Normal, no visual loss
Facial Palsy: 0=Normal, symmetrical
Motor - Right Arm: 0=No drift 10 seconds
Motor - Left Arm: 0=No drift 10 seconds
Motor - Right Le-No drift 5 seconds
Motor - Left Le-No drift 5 seconds
Limb Ataxia: 0-Absent
Sensation: 0-Normal
Best Language: 0-No aphasia
Dysarthria: 0-Normal
Extinction and Inattention: 0-No abnormality
Total Score:: 0
Modified [place] (mRS) Score
Modified [place] Scale (mRS): No significant disability. Able to carry out usual activities.
Score: 1
Alteplase Contraindication
Inclusion and Exclusion criteria reviewed: Yes
Reasons for NON-Tx with Thrombolytics ABSOLUTE Exclusions: Greater than 4.5 hrs from onset of sxs

Documented by User: Cesia Hagen DO 04/12/24 17:01
NIH Stroke Score
NIH Stroke Score
Total Score:: 0
Modified [place] (mRS) Score
Score: 1
[2024-04-12] MEDS: PLAVIX 75 MG PO (08:50)
[2024-04-12] MEDS: LOW STRENGTH ASPIRIN 81 MG PO (08:50)
[2024-04-12] MEDS: FOLVITE 1 MG PO (08:50)
[2024-04-12] MEDS: PROTONIX 40 MG PO (08:50)
[2024-04-12 08:54] LABS: Glycohemoglobin (HgbA1c) 5.5 % (4.0-5.6)
--- NOTE | 2024-04-12 10:07 | CM ---
CM reviewed medical records. CM met with patient and in room. Patient lives independently with . Patient does not have a history of VN, SNF or DME. Patient has medication coverage and uses [facility] in [place]. Patient is active with his PCP.
GUERRA letter given and explained.
PLAN: Pending PT evaluations
[2024-04-12] MEDS: LIPITOR 40 MG PO (12:21)
--- NOTE | 2024-04-12 12:28 | W.PN.HOSP.TC ---
Addendum entered and electronically signed by Kornad Leram MD 04/12/24 17:35:
[id number]
Original Note:
Today's Communication/Plan
-
DAPT 21 days, then ASA alone
Statin
ECHO
F/u neurology recs
Neuro and PCP outpatient
Assessment / Plan
Assessment / Plan
Physical Exam
General: Well Developed, Well Nourished and No Apparent Distress
HEENT: NormoCephalic, Moist mucous membranes and Atraumatic
Respiratory: Clear
Cardiac: S1/S2 and Regular Rhythm; No Murmur or Rub
GI: Soft, Non Tender, Non Distended and Normal Bowel Sounds; No Organomegaly
Rectal: Deferred by Provider
Musculoskeletal: No Clubbing, No Cyanosis and No Edema
Skin: No Rash
Neuro: Nonfocal/grossly intact
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
# Small foci of acute/subacute infarct involving posterior medial right occipital lobe, anterior medial right frontal lobe
-No neurological deficits on examination
-Telemetry
-EKG shows normal sinus rhythm
-Aspirin and Plavix 21 days; then asa alone
-Check A1c: 5.5; LDL 102
-MRA head and neck no stenosis
-Check echo
-Neurology consulted
-PT/OT
Constipation
-Had bowel movement this morning
-MiraLAX if needed
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
-Continue prophylactic azithromycin
History of ocular migraines
Left ear cerumen impaction
-Continue Debrox
Idiopathic pulmonary fibrosis
History of asymptomatic sinus bradycardia
Lumbar spinal stenosis
-continue ibuprofen PRN
Hyperlipidemia
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
GERD
-Continue omeprazole
Anxiety
-Continue Ativan
DNR/DNI
DVT prophylaxis�SCDs
Regular diet
More than 30 minutes spent in discharge including
Final examination of the patient
Summarizing hospital stay
Instructions for continuing care to all relevant caregivers
Preparation of discharge records, prescriptions, and referral forms
Total time spent (35 in minutes):
Anticipated Discharge: Today
Subjective/Interval History
-
Date of Service: April 12, 2024
no acute events
Objective Data
-
Labs:
Laboratory Results
04/12/24
04:55
WBC 3.5 L
Hgb 11.9 L
Hct 35.0 L
Plt Count 89 L D
Sodium 138
Potassium 4.1
Chloride 104
Carbon Dioxide 26
BUN 16
Creatinine 0.8
Glucose 90
Calcium 8.9
Vital Signs:
Vital Signs
Temp Pulse Resp BP Pulse Ox
98.2 F 73 18 120/75 97
04/12/24 07:00 04/12/24 08:15 04/12/24 08:15 04/12/24 07:00 04/12/24 07:00
Review of Systems
-
History Source: Patient
All other systems: Not reviewed unless documented
Data Reviewed
-
CT Scan: Image personally visualized and interpreted and Report Reviewed by me
MRI: Report Reviewed by me
Labs: Labs Reviewed by me
--- NOTE | 2024-04-12 16:45 | W.DS.TRANS ---
DC Summary - Digital Account Supervisor
-
Discharge Instructions:
Discharge Diagnosis/Procedures # Acute/subacute infarction of posterior medial
right cerebellar hemisphere
# Small foci of acute/subacute infarct involving
posterior medial right occipital lobe, anterior
medial right frontal lobe
#flashes of light in his peripheral vision
Diet Low Cholesterol,Low Fat
Activity As tolerated
Instructions:
Stand-Alone Forms:
Changes to Home Medications: Yes
Discharge Medications:
DC Medications w/original date entered in [employer]
acetaminophen 500 mg tablet (Tylenol Extra Strength) 1,000 mg PO Q6HPRN PRN mild pain 02/28/24
albuterol sulfate 1.25 mg/3 mL solution for nebulization 1.25 mg inhalation R BIDPRN PRN sob 02/28/24
azithromycin 250 mg tablet 250 mg PO MOWEFR Lung/Breathing Issues 02/28/24
fluticasone propionate 230 mcg-salmeterol 21 mcg/actuation HFA inhaler (Advair HFA) 1 puff inhalation R BID Lung/Breathing Issues 02/28/24
lorazepam 0.5 mg tablet (Ativan) 0.5 mg PO HSPRN PRN sleep/anxiety 02/28/24
carbamide peroxide 6.5 % ear drops 5 drp LEFT EAR DAILYPRN PRN earwax 04/11/24
dexamethasone 4 mg tablet 8 mg PO DAILYPRN PRN take day before and day afr Tx 04/11/24
folic acid 1 mg tablet 1 mg PO DAILY Supplement 04/11/24
ibuprofen 200 mg tablet 400 mg PO Q6HPRN PRN mild pain 04/11/24
lidocaine-prilocaine 2.5 %-2.5 % topical cream 1 applic topical DAILYPRN PRN apply before port access 04/11/24
omeprazole 20 mg capsule,delayed release 20 mg PO BID Gastrointestinal Issue 04/11/24
aspirin 81 mg chewable tablet 81 mg PO DAILY 30 days #30 tabs 04/12/24
atorvastatin 40 mg tablet 40 mg PO QPM 30 days #30 tabs 04/12/24
clopidogrel 75 mg tablet 75 mg PO DAILY 21 days #21 tabs 04/12/24
Home Medication Changes
aspirin 81 mg chewable tablet 81 mg PO DAILY 30 days #30 tabs 04/12/24
atorvastatin 40 mg tablet 40 mg PO QPM 30 days #30 tabs 04/12/24
clopidogrel 75 mg tablet 75 mg PO DAILY 21 days #21 tabs 04/12/24
Pending Results: No
[2024-04-12 16:59] LABS: Folate 15.3 ng/ml (2.76-20); Vitamin B12 360 pg/ml (239-931)
== END 2024-04-12 16:44 | disposition home or self-care (01) ==
LOC: ED 17:02
PROVIDERS: Physician Assistant; ADMITTING PHYSICIAN Hospitalist; ATTENDING PHYSICIAN Internal Medicine; CONSULT PHYSICIAN Psychiatry & Neurology Neurology; EMERGENCY PHYSICIAN Emergency Medicine; FAMILY PHYSICIAN Internal Medicine Hematology & Oncology
DX: I63.89 Other cerebral infarction (principal); R94.31 Abnormal electrocardiogram [ECG] [EKG]; I70.0 Atherosclerosis of aorta; I51.7 Cardiomegaly; E04.1 Nontoxic single thyroid nodule; R53.1 Weakness; R79.89 Other specified abnormal findings of blood chemistry; C34.90 Malignant neoplasm of unspecified part of unspecified bronchus or lung; H53.9 Unspecified visual disturbance; R53.83 Other fatigue; R42 Dizziness and giddiness; Z87.891 Personal history of nicotine dependence; J84.112 Idiopathic pulmonary fibrosis; M48.061 Spinal stenosis, lumbar region without neurogenic claudication; E78.5 Hyperlipidemia, unspecified; K30 Functional dyspepsia; K59.00 Constipation, unspecified; H61.22 Impacted cerumen, left ear; K21.9 Gastro-esophageal reflux disease without esophagitis; F41.9 Anxiety disorder, unspecified; Z66 Do not resuscitate; Z85.828 Personal history of other malignant neoplasm of skin; Z88.5 Allergy status to narcotic agent; Z79.51 Long term (current) use of inhaled steroids; Z85.820 Personal history of malignant melanoma of skin
CPT/HCPCS: 70544; 70548; 70553; 80048; 80053; 80061; 82607; 82728; 82746; 83036; 84443; 85025; 85610; 85730; 93005; 93306; 94640; 96374; 97161; 99285; A9575; A9579

== ENCOUNTER → 2024-04-19 08:42 | Outpatient (REF) | payer OTHER, SELFPAY | LOC: PET 08:42 | PROVIDERS: ATTENDING PHYSICIAN Internal Medicine Hematology & Oncology | DX: C34.11 Malignant neoplasm of upper lobe, right bronchus or lung (principal) | CPT/HCPCS: 78816; A9552 ==

== ENCOUNTER → 2024-05-22 11:41 | Outpatient (REF) | payer OTHER, SELFPAY ==
--- NOTE | 2024-05-22 11:51 | W.PN.UPDATE ---
Update Note
Progress Note Update
79 yo male with H/O lung cancer was sent over from [facility] for port site check. Pt reports he has had no issues with his port since placement on 03/26/24. He denies fever or chills. He denies pain over the port. He has had no drainage
from the site. The nurse today was concerned that there was a 'small opening and that the skin was reddened'. He did have a treatment today but the port was not accessed.
PE: WNWD 79 yo male in NAD. There is a SL port in the left chest. The area does not appear to be erythematous. There is no warmth or tenderness to palpation. There is no fluctuance. There is no incisional dehiscence. There is a small area of
granulation tissue over the distal 3 mm of the incision without purulent drainage.
A/P: 79 yo male with lung CA who presents today for port site check
There is no concern for cellulitus or wound dehiscence at this time. Port id OK to be used. Pt evaluated by myself and Dr. Brannon Kulkarni. If anything changes we are happy to re-evaluate
== END ==
LOC: RADI 11:41
PROVIDERS: ATTENDING PHYSICIAN Internal Medicine Hematology & Oncology
DX: Z45.2 Encounter for adjustment and management of vascular access device (principal); C34.90 Malignant neoplasm of unspecified part of unspecified bronchus or lung

== ENCOUNTER → 2024-06-28 13:11 | Outpatient (REF) | payer OTHER, SELFPAY | LOC: HWRAD 13:11 | PROVIDERS: ATTENDING PHYSICIAN Nurse Practitioner Adult Health; FAMILY PHYSICIAN Internal Medicine; REFERRING PHYSICIAN Internal Medicine Critical Care Medicine | DX: C34.11 Malignant neoplasm of upper lobe, right bronchus or lung (principal) | CPT/HCPCS: 71260; Q9967 ==

== ENCOUNTER → 2024-07-17 11:50 | Outpatient (REF) | payer OTHER, SELFPAY | LOC: HWRAD 11:50 | PROVIDERS: ATTENDING PHYSICIAN Internal Medicine Critical Care Medicine; FAMILY PHYSICIAN Internal Medicine; REFERRING PHYSICIAN Internal Medicine Hematology & Oncology | DX: J84.9 Interstitial pulmonary disease, unspecified (principal) | CPT/HCPCS: 71046 ==

== ENCOUNTER → 2024-07-19 14:42 | Outpatient (REF) | payer OTHER, SELFPAY ==
--- NOTE | 2024-07-19 16:00 | CARDSERVLU ---
Echocardiogram with [facility] completed after protocol screening completed. Allergies verified.
Patent IV site: _Left median antecubital_22G PC___
IV site flushed with 0.9% NaCl pre and post administration.
Diluted bolus method utilized to enhance visualization of ventricular lopez.
Total volume given: __3__ mL
Patient tolerated all procedures well without complications.
Heplock D/C ed at 1556, site clear, no redness, no edema. Pressure held,no bleeding,2x2 applied and taped. Pt offers no complaints.
== END ==
LOC: RCS 14:42
PROVIDERS: ATTENDING PHYSICIAN Nurse Practitioner Adult Health; FAMILY PHYSICIAN Internal Medicine; REFERRING PHYSICIAN Internal Medicine Critical Care Medicine
DX: C34.11 Malignant neoplasm of upper lobe, right bronchus or lung (principal)
CPT/HCPCS: 93306; Q9950

== ENCOUNTER → 2024-08-02 10:41 | Outpatient (REF) | payer OTHER, SELFPAY | LOC: PET 10:41 | PROVIDERS: ATTENDING PHYSICIAN Internal Medicine Hematology & Oncology | DX: C34.11 Malignant neoplasm of upper lobe, right bronchus or lung (principal) | CPT/HCPCS: 78816; A9552 ==

== ENCOUNTER → 2024-08-29 16:46 | Outpatient (REF) | payer OTHER, SELFPAY | LOC: RAD 16:46 | PROVIDERS: ATTENDING PHYSICIAN Nurse Practitioner Adult Health; FAMILY PHYSICIAN Internal Medicine | DX: C34.31 Malignant neoplasm of lower lobe, right bronchus or lung (principal); C34.11 Malignant neoplasm of upper lobe, right bronchus or lung | CPT/HCPCS: 71260; Q9967 ==

== ENCOUNTER → 2024-09-11 15:16 | Outpatient (REF) | payer OTHER, SELFPAY ==
[2024-09-11 12:14] LABS: ALT (SGPT) 15 U/L (0-50); AST (SGOT) 27 U/L (17-59); Albumin 4.2 g/dl (3.5-5.0); Alkaline Phosphatase 90 U/L (38-126); Blood Urea Nitrogen 19 mg/dl (9-20); Calcium 9.3 mg/dl (8.4-10.2); Carbon Dioxide 27 mmol/L (22-30); Chloride 104 mmol/L (98-107); Glucose 120 mg/dl (70-99); Potassium 4.3 mmol/L (3.5-5.1); Sodium 140 mmol/L (135-145); Total Bilirubin 0.3 mg/dl (0.2-1.3); Total Protein 7.1 g/dl (6.3-8.2); eGFR 47.06
== END ==
LOC: OIDL 15:16
PROVIDERS: ATTENDING PHYSICIAN Internal Medicine Hematology & Oncology
DX: C34.11 Malignant neoplasm of upper lobe, right bronchus or lung (principal)
CPT/HCPCS: 80053

== ENCOUNTER → 2024-09-24 10:56 | Outpatient (REF) | payer OTHER, SELFPAY | LOC: HWRAD 10:56 | PROVIDERS: ATTENDING PHYSICIAN Nurse Practitioner Adult Health; FAMILY PHYSICIAN Internal Medicine; REFERRING PHYSICIAN Internal Medicine Hematology & Oncology | DX: J84.9 Interstitial pulmonary disease, unspecified (principal) | CPT/HCPCS: 71046 ==

== ENCOUNTER → 2024-10-12 10:26 | Outpatient (REF) | payer OTHER, SELFPAY | LOC: RAD 10:26 | PROVIDERS: ATTENDING PHYSICIAN Nurse Practitioner Adult Health | DX: C34.11 Malignant neoplasm of upper lobe, right bronchus or lung (principal); N17.8 Other acute kidney failure | CPT/HCPCS: 76775 ==

== ENCOUNTER → 2024-10-30 11:14 | Outpatient (REF) | payer OTHER, SELFPAY | LOC: HWRAD 11:14 | PROVIDERS: ATTENDING PHYSICIAN Internal Medicine Critical Care Medicine; FAMILY PHYSICIAN Internal Medicine; REFERRING PHYSICIAN Internal Medicine Hematology & Oncology | DX: J84.9 Interstitial pulmonary disease, unspecified (principal) | CPT/HCPCS: 71046 ==

== ENCOUNTER → 2024-12-05 08:49 | Outpatient (REF) | payer OTHER, SELFPAY | LOC: PET 08:49 | PROVIDERS: ATTENDING PHYSICIAN Internal Medicine Hematology & Oncology | DX: C34.11 Malignant neoplasm of upper lobe, right bronchus or lung (principal) | CPT/HCPCS: 78816; A9552 ==

== ENCOUNTER → 2024-12-07 07:39 | Outpatient (REF) | payer OTHER, SELFPAY ==
[2024-12-07 08:00] VITALS: BP 148/83; BP_SYST 80
[2024-12-07 08:23] VITALS: BP 145/85; BP_SYST 78
[2024-12-07 08:56] VITALS: BP 145/85
[2024-12-07 09:12] LABS: Body Fluid Mononuclear 77.3 %; Body Fluid Polymorphonuclear 22.7 %; Body Fluid WBC 914 /CUMM
[2024-12-07 09:13] LABS: Body Fluid Second Tech EM
[2024-12-07 09:14] LABS: Body Fluid Glucose 41 mg/dl; Body Fluid LDH 716 U/L; Body Fluid Protein 4.3 g/dl; Body Fluid pH 7.18
== END ==
LOC: RADI 07:39
PROVIDERS: ATTENDING PHYSICIAN Internal Medicine Critical Care Medicine; FAMILY PHYSICIAN Internal Medicine
DX: C34.90 Malignant neoplasm of unspecified part of unspecified bronchus or lung (principal); J91.0 Malignant pleural effusion
CPT/HCPCS: 88305; 32555; 71045; 82945; 83615; 83986; 84157; 87015; 87070; 87102; 87116; 87205; 87206; 88112; 88341; 88342; 89051

== ENCOUNTER 2024-12-08 14:44 | Inpatient (IN) | payer OTHER, SELFPAY ==
[2024-12-08] VITALS (7 sets, daily range): BP systolic 120–154; BP diastolic 74–97
--- NOTE | 2024-12-08 11:42 | ED.GENMED ---
History of Present Illness
General
Chief Complaint: Musculo-Skeletal Complaint
Source: patient, records and spouse
Time Seen by Provider: 12/08/24 11:18
History of Present Illness
History of Present Illness:
This patient is a 79-year-old male with a history of melanoma and lung cancer, currently under treatment, who reports pain in the left scapula that started yesterday morning. He incidentally was noted to have a right pleural effusion and later
yesterday he had approximately 850 cc of fluid drained via thoracentesis via IR. That procedure went well. Patient notes that he continues to have left scapular pain which is worse when he takes a deep breath, moves, or coughs. He has chronic
dyspnea which is unchanged. He denies leg swelling, chest pain, neck pain, headache, dizziness, bleeding, or other new complaints. He is not on anticoagulation and takes a baby aspirin each day.
Past History
Past History
ED Past Medical History: Other (Pulmonary fibrosis, pulmonary nodules, lung cancer, melanoma, CVA, hypercholesterolemia)
ED Past Surgical History: Orthopedic
Social History
Tobacco: Former smoker
Alcohol: Occasional
Drug: None
Personal:
Living: with family
Phy Exam
Physical Exam
Physical Exam:
GENERAL: Alert , in no apparent distress, very pleasant, thin
EYE: pupils equal and reactive
NECK: Supple, no significant adenopathy.
ENT: o/p clr, mmm.
CARDIAC: Regular rate and rhythm .
LUNGS: Equal breath sounds bilaterally, no acute respiratory distress, bibasilar rales noted, no stridor, no cough
ABDOMEN: Soft, without focal tenderness, no r/g, no cvat
NEUROLOGICAL: Alert and oriented, no focal neuro deficits
SKIN: Warm and dry, skin intact.
MUSCULOSKELETAL: No edema, well perfused.
PSYCH: Normal and appropriate interaction.
Course
Orders/Labs/Results
Orders:
Orders
12/08/24 09:58
Electrocardiogram (*1) Urgent
Reason for Study: Shortness of Breath
EKG- Treatment ONCE
12/08/24 11:47
CT Chest PE Study Urgent
Comment:
Reason For Exam: hx lung ca, now L scapular pain
Cardiac Monitoring- Treatment ONCE
Pulse Ox/cont/shift [RESP] Stat
Quantity: 1
12/08/24 11:52
Acetaminophen [Tylenol] 1,000 mg PO NOW STA
12/08/24 11:59
Complete Blood Count/No Diff Urgent
Comprehensive Metabolic Panel Urgent
NT-proBNP Urgent
TSH Reflex To Free T4 Urgent
Comment: ADD ON
Troponin I Urgent
12/08/24 14:23
Admit/Transfer Patient As Directed
Co-Sign Provider:
Level of Care: Inpatient admission
Assign to:: Telemetry
Physician / Group: cristofer machado
Diagnosis: Lshoulder pain 2/2 MEG Occ PE, Non occ RUL lung ca, sepsis unclear
Reason for Telemetry: Arrhythmia
Date to Stop Telemetry: 12/11/24
Time to Stop Telemetry: 11:00
Reason for Hospitalization: Lshoulder pain 2/2 MEG Occ PE, Non occ RUL lung ca, sepsis unclear
Expected length of stay greater than two midnights?: Yes
ELOS- Estimated Length of Stay in days: 5
I certify the patient meets the requirements for IP care: Yes
12/08/24 14:25
COVID-19 Antigen Urgent
Source: Nasal Swab
Lactic Acid Urgent
PTT Urgent
Comment: Obtain baseline before beginning heparin infusion if not already collected
Blood Culture Q30M
KARINA Source: Blood/Venous
Specimen Description:
Blood Culture Q30M
KARINA Source: Blood/Venous
Specimen Description:
Influenza A+B Rapid Molecular Urgent
KARINA Source: Nasal Swab
Specimen Description:
12/08/24 14:27
PRN Pain Medication Management As Directed
May give lesser potent ordered pain med per pt: Yes
preference::
Protocol:: Medication orders for pain may be administered in a
manner that supports deferring to patient preference
when the pt is:
- Requesting an ordered lesser potent pain medication.
Least to most potent pain medications are defined
as: acetaminophen < NSAID < tramadol < opioids
(morphine, oxycodone, hydromorphone).
- Requesting a lesser dose of the same medication IF
ORDERED.
- Requesting a less intrusive route of administration
if both routes are prescribed by the provider (PO <
IV).
12/08/24 14:29
Case Management Consult ONCE
Case Management Consult: Other
Requested By:: PHYSICIAN
Comment: Eliquis pricing 10 mg twice daily x 7 days then 5 mg p.o. twice daily due to bilateral PEs
12/08/24 14:30
Add On- LAB Urgent
Tests Added?: tsh with free t4 reflex
Heparin 83846 Units/250 ml 25,000 units in 250 ml IV PER PROTOCOL
Weight to be used for heparin protocol in kilograms (kg):: 64.864
Protocol:: DVT/PE
PTT Goal Range to be used:: PTT 73 to 111 seconds
Order type:: Initial
INITIAL Infusion Dose (UNITS/KG/hr) & then follow protocol:: 18 units/kg/hr
Infusion Dose in UNITS/hr & then follow protocol (UNITS/hr):: 1,200
INFUSION RATE in mL/hr & then follow protocol (mL/hr):: 12
For DVT/PE algorithm, re-bolus for low PTT?: Yes
PTT less than or equal to 64 seconds:: Re-bolus 80 units/kg (max 10,000units). Increase by 300 units/hr
(+ 3mL/hr)
PTT 64.1 to 72.9 seconds:: Re-bolus 40 units/kg (max 5,000 units). Increase by 100 units/hr
(+ 1mL/hr)
PTT 73 to 111 seconds:: Target Range. No change in rate.
PTT 111.1 to 130.9 seconds:: Decrease rate by 100 units/hr (- 1 mL/hr)
PTT 131 to 199.9 seconds:: HOLD for 1 hr. Then decrease by 200 units/hr (- 2mL/hr)
PTT greater than or equal to 200 seconds:: HOLD for 2 hrs & Notify Provider. Then decrease by 300 units/hr
(- 3mL/hr)
Lab follow-up:: Each change, PTT q6h until 2 consecutive are therapeutic. Then
PTT daily.
Warming [place] [Heating/Cooling [place]] As Directed
Mode:: Automatic
Type of thermoregulation:: Heating
PATIENT'S Goal Temperature:: 96.8 F (36 C)
Comments/Additional Instructions:: Temperature and skin assessment per unit protocol
12/08/24 14:31
Heparin 5,200 units IV PRN PRN
12/08/24 14:33
Heparin 2,600 units IV PRN PRN
12/08/24 16:07
Acetaminophen [Tylenol] 650 mg PO Q4HPRN PRN
Bisacodyl [Dulcolax] 10 mg RECTAL [id number] PRN
Docusate W/Senna [Senokot-S] 1 tablet PO BIDPRN PRN
Polyethylene Glycol Powder [Miralax] 17 grams PO DAILYPRN PRN
12/08/24 16:07
VTE Contraindication Routine
VTE Mechanical Device Contraindication: Medical Contraindication
Pharmocologic Contraindication: Medical Contraindication
Comment: Patient on heparin drip for PE
Heparin Protocol- PTT Orders As Directed
PTT per Heparin protocol: -Obtain CBC and baseline PTT - if not already collected.
-Obtain PTT 6 hours from start of infusion. Then, every 6 hours until 2 consecutive
PTT's are therapeutic. Then, PTT Daily.
-With each rate change, obtain PTT every 6 hours until 2 consecutive PTT's are
therapeutic. Then, PTT Daily.
Activity As Directed
Activity Level: As Tolerated
Intake/ Output As Directed
Frequency: Per unit guidelines
Notify MD As Directed
Notify physician if: PTT is greater than or equal to 200.
Vital Signs As Directed
Frequency: Per unit guidelines
Weight As Directed
Frequency: Daily
O2 Therapy [RESP] Routine
Nasal Cannula Liter Flow: 2 LPM
Titrate/Wean O2 to maintain O2 sat greater than (%): 92
Pt Eval And Treat Routine
Activity Level: As Tolerated
12/08/24 23:25
Procalcitonin Urgent
PCT Algorithmm Indication: Sepsis
12/09/24 06:18
Complete Blood Count/With Diff IN AM
Comprehensive Metabolic Panel IN AM
12/11/24 11:00
DC Protocol for Telemetry ONCE
Abnormal Lab Results
12/08/24
11:59
WBC 23.2 H 10^3/uL
(4.8-10.8)
RBC 3.82 L 10^6/uL
(4.70-6.10)
Hgb 12.7 L g/dL
(13.0-18.0)
Hct 38.0 L %
(39.0-52.0)
MCV 99.5 H fL
(80.0-94.0)
MCH 33.2 H pg
(27.0-31.0)
MPV 10.6 H fL
(7.4-10.4)
BUN 39 H mg/dl
(9-20)
Creatinine 1.4 H mg/dL
(0.7-1.3)
Glucose 122 H mg/dl
(70-99)
12/08/24 11:59
12/08/24 11:59
Vital Signs
Initial and Last Documented VS:
Initial Vital Signs
Temp Pulse Resp BP Pulse Ox
95 F L 88 16 140/76 95
12/08/24 09:54 12/08/24 09:54 12/08/24 09:54 12/08/24 09:54 12/08/24 09:54
Last Documented Vital Signs
Temp Pulse Resp BP Pulse Ox
97.5 F 83 16 117/72 95
12/09/24 07:00 12/09/24 07:00 12/09/24 07:00 12/09/24 07:00 12/09/24 07:00
*Critical Care Note
Total Time (30-74mins, 75-104mins- exclusive of procedures): Not Applicable
Update Note
Update Note:
Patient presents to the Emergency Department with left scapular pain
Number and Complexity of Problems Addressed at the Encounter
� Chronic conditions affecting care:
� Acute Exacerbation and/or Progression of Chronic Illness:
� Differential Diagnosis includes: But not limited to ACS, pneumothorax, pleural effusion, PE, pericarditis, etc. etc.
Amount and/or Complexity of Data to be Reviewed and Analyzed
� I performed an independent evaluation of and my interpretation is:
EKG: Read by me, normal sinus rhythm with occasional PVC, no acute ischemia noted
CT:Has prob acute embolus in MEG segemental branch, prob acute. Nonocclusive emboli in RUL subsegmental branches prob subacute. No central emboli
2:01 PM
Message sent at 2:01 PM.
30 days left
Message expires in 30 days.
[facility]
said
Progression of mets, minimal right effusion
Xrays:
Laboratory Studies:wbc elevration, stable hgb and ckd
Other:
� Review of other/old records reveals: Patient admitted for CVA last year. Yesterday cxr No pneumothorax.
Chronic interstitial changes redemonstrated. Cannot rule out superimposed acute pneumonitis.
� Clinical information was obtained by an independent historian:
� Prescriptions/Medications Considered but not given:
� Further testing considered but not performed: Consider chest x-ray to rule out pneumothorax given recent thoracentesis yesterday however postprocedure chest x-ray from yesterday does not demonstrate pneumothorax.
Risk of Complications and/or Morbidity or Mortality of Patient Management
� Social determinants of health affecting care:
� Discussion with other providers (PCP, Hospitalists, Consultants, etc):
� Escalation of care including admission/observation vs risk of discharge considered: Suspect white blood cell count elevation related to patient's prednisone use. CT consistent with PE, will begin heparin drip and admit. Do
not suspect right heart strain, not noted on CT, Trope and BNP relatively unremarkable.
ED Attending Note
-
Portions of this chart may have been created with voice recognition software.� Occasional wrong word or��sound alike� substitutions may have occurred due to the inherent limitations of voice recognition software.
Discharge Plan
Departure
Patient Disposition: Admit
Date of Disposition: 12/08/24
Time of Disposition: 14:13
Admit to: Telemetry
Presentation/result/management discussed w/ accepting MD/DO: Hospitalist
Discharge Problem:
Pulmonary emboli
Interventions
Interventions:
*Risk Screen - Suicide Last Done: 12/08/24 17:02
*General Assessment Last Done: 12/08/24 11:17
*ED- Fall Risk Assessment Last Done: 12/08/24 11:17
*ED COVID-19 Vaccine History Last Done: 12/08/24 17:02
*Nursing Disposition Last Done: 12/08/24 16:48
ED-Musculoskeletal Assessment Last Done: 12/08/24 11:17
Discharge Date and Time
Discharge Date/Time: 12/08/24 16:48
[2024-12-08] MEDS: TYLENOL 1000 MG PO (11:58)
[2024-12-08 12:24] LABS: Hemoglobin 12.7 g/dL (13.0-18.0); Mean Corp Hgb Conc. 33.4 g/dL (33.0-37.0); Mean Corpuscular Hgb 33.2 pg (27.0-31.0); Mean Corpuscular Volume 99.5 fL (80.0-94.0); Mean Platelet Volume 10.6 fL (7.4-10.4); Platelet Count 206 10^3/uL (130-400); Red Blood Cell Count 3.82 10^6/uL (4.70-6.10); White Blood Cell Count 23.2 10^3/uL (4.8-10.8)
[2024-12-08 12:38] LABS: ALT (SGPT) 19 U/L (0-50); AST (SGOT) 24 U/L (17-59); Albumin 3.5 g/dl (3.5-5.0); Alkaline Phosphatase 82 U/L (38-126); Blood Urea Nitrogen 39 mg/dl (9-20); Calcium 9.6 mg/dl (8.4-10.2); Carbon Dioxide 29 mmol/L (22-30); Chloride 104 mmol/L (98-107); Glucose 122 mg/dl (70-99); Potassium 4.8 mmol/L (3.5-5.1); Sodium 139 mmol/L (135-145); Total Bilirubin 0.7 mg/dl (0.2-1.3); Total Protein 6.4 g/dl (6.3-8.2); eGFR 51.13
[2024-12-08 12:43] LABS: NT-proBNP 562 pg/ml; Troponin I 0.019 ng/ml
--- NOTE | 2024-12-08 14:15 | HPS.HSE ---
Family Physician
-
Family Physician: Liam Greco
Chief Complaint
-
pain in the left scapula
History of Present Illness
79M Former smoker HX melanoma and lung cancer, currently under treatment seen at ER:
- reports pain in the left scapula that started yesterday morning.
- incidentally was noted to have a right pleural effusion and later yesterday he had approximately 850 cc of fluid drained via thoracentesis via IR. That procedure went well.
- Patient notes that he continues to have left scapular pain which is worse when he takes a deep breath, moves, or coughs. - - HX chronic dyspnea which is unchanged.
- He is not on anticoagulation and takes a baby aspirin each day.
HX Pulmonary fibrosis, pulmonary nodules, lung cancer, melanoma, CVA, hypercholesterolemia
ROS
He denies leg swelling, chest pain, neck pain, dizziness, bleeding, or other new complaints.
ER Tx:
Heaprin gtt
Medical History
Past Medical History
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
Past Surgical History: Reports Other ( Orthopedic)
Social History
Tobacco: Non-smoker
Alcohol: None
Drug: None
Family History
Family History: Not pertinent
Allergies / Home Medications
Allergies reflects when Allergies were last updated in [employer].
Home Medications with original date entered in [employer]
Allergy/Medication List:
Allergies
Allergy/AdvReac Type Severity Reaction Status Date / Time
pollen extracts Allergy Sinus Verified 04/11/24 13:47
congestion
hydromorphone [From Dilaudid] AdvReac Nausea / Verified 04/11/24 13:47
Vomiting
Home Medications
acetaminophen 500 mg tablet (Tylenol Extra Strength) 1,000 mg PO Q6HPRN PRN mild pain 02/28/24
albuterol sulfate 1.25 mg/3 mL solution for nebulization 1.25 mg inhalation R BIDPRN PRN sob 02/28/24
azithromycin 250 mg tablet 250 mg PO MOWEFR 02/28/24
fluticasone propionate 230 mcg-salmeterol 21 mcg/actuation HFA inhaler (Advair HFA) 1 puff inhalation R BID 02/28/24
lorazepam 0.5 mg tablet (Ativan) 0.5 mg PO HSPRN PRN sleep/anxiety 02/28/24
carbamide peroxide 6.5 % ear drops 5 drp LEFT EAR DAILYPRN PRN earwax 04/11/24
dexamethasone 4 mg tablet 8 mg PO DAILYPRN PRN take day before and day afr Tx 04/11/24
folic acid 1 mg tablet 1 mg PO DAILY 04/11/24
ibuprofen 200 mg tablet 400 mg PO Q6HPRN PRN mild pain 04/11/24
lidocaine-prilocaine 2.5 %-2.5 % topical cream 1 applic topical DAILYPRN PRN apply before port access 04/11/24
omeprazole 20 mg capsule,delayed release 20 mg PO BID 04/11/24
Review of Systems
-
Constitutional: Reports No Symptoms
EENT: Reports No Symptoms
Respiratory: Reports No Symptoms
Cardiac: Reports No Symptoms
Abdomen/GI: Reports No Symptoms
: Reports No Symptoms
Musculoskeletal: Reports No Symptoms
Skin: Reports No Symptoms
Neurological: Reports No Symptoms
Endocrine: Reports No Symptoms
Hematologic/Lymphatic: Reports No Symptoms
Psych: Reports No Symptoms
Physical Exam
Vital Signs
Vital Signs
Temp Pulse Resp BP Pulse Ox
95 F L 67 16 131/74 95
12/08/24 09:54 12/08/24 13:00 12/08/24 13:00 12/08/24 12:08 12/08/24 12:07
Physical Exam
General: Well Developed, Well Nourished and No Apparent Distress
HEENT: NormoCephalic, Moist mucous membranes and Atraumatic
Respiratory: Other (Equal breath sounds bilaterally, no acute respiratory distress, bibasilar rales noted, no stridor, no cough)
Cardiac: S1/S2 and Regular Rhythm; No Murmur or Rub
GI: Soft, Non Tender, Non Distended and Normal Bowel Sounds; No Organomegaly
Rectal: Deferred by Provider
Musculoskeletal: No Clubbing, No Cyanosis and No Edema
Skin: No Rash
Neuro: Nonfocal/grossly intact
Laboratory Results
-
12/08/24 11:59
12/08/24 11:59
Laboratory Results
Total Bilirubin 0.7 mg/dl (0.2-1.3) 12/08/24 11:59
AST 24 U/L (17-59) 12/08/24 11:59
ALT 19 U/L (0-50) 12/08/24 11:59
Alkaline Phosphatase 82 U/L (38-126) 12/08/24 11:59
Troponin I 0.019 ng/ml 12/08/24 11:59
Data Reviewed
-
CT Scan: Report Reviewed by me
Medical Tests (Nuc Med, Echo, EKG etc): Report Reviewed by me
Lab Data: Labs Reviewed by me
Impression/Plan
-
Selected Entries
12/08/24
09:54
Pulse 88
Resp Rate 16
Blood pressure 140/76
SaO2 95
Oxygen Mode of Delivery Room air
Laboratory Tests
04/12/24 09/11/24 12/08/24
04:55 11:00 11:59
WBC 3.5 L 23.2 H
Hgb 11.9 L 12.7 L
Plt Count 89 L D 206
BUN 19 39 H
Creatinine 1.5 H 1.4 H
eGFR 47.06 51.13
Troponin I 0.019
Efm-M-Rguuqeaqite Pept 562
CTC PE study
1. Nearly occlusive embolus in left upper lobe segmental branch as above, most likely acute. Right upper lobe nonocclusive emboli in subsegmental branches as described, most likely subacute.
2. Small volume residual right pleural fluid. No pneumothorax. Known right upper lobe malignancy. As above, bilateral lung bases show changes of fibrosis with superimposed edematous changes on the right. The bilateral upper lungs, there is
increased interstitial and groundglass opacity with interstitial thickening. While this could be related to edematous change, lymphangitic metastasis is possible. There is also increase in size of a small nodule in the left upper lobe which is most
likely related to metastasis. There is increased right hilar metastatic lymphadenopathy. There is increased osteoblastic metastatic disease.
TTE
Normal left ventricular size, wall thickness and systolic function.
Estimated LVEF 60-65%.
Aortic sclerosis without stenosis.
Mildly enlarged right ventricular size. Normal right ventricular systolic function.
Mild tricuspid regurgitation. Mildly elevated PASP.
Estimated pulmonary artery pressure of 42 mmHg. Assuming a right atrial pressure of 3 mmHg.
No prior study available for comparison.
pending Covid and Flu
Last hospitalist admission:
DATE OF ADMISSION: 04/11/2024 - DATE OF DISCHARGE: 04/12/2024
- Acute/subacute infarction of posterior medial right cerebellar hemisphere.
- Small foci of acute/subacute infarct involving posterior medial right occipital lobe, anterior medial
right frontal lobe/flashes of light in his peripheral vision.
ASSESSMENT & PLAN
Pending Rx reconciliation
SIRS picture - Infectious vs non infectious origin
Hypothermia with leucocytosis
Hemodynamically
- check covid and flu
- BCx
- check LA
- check PCT for sepsis
- Hold off ABx for now
Provoked segmental PE
- Nearly occlusive PE in left upper lobe segmental branch likely acute.
- Nonocclusive PE Right upper lobe subsegmental branches most likely subacute.
- Hemodynamically stable
- agree with Heparin gtt
- CRM consult for Eliquis pricing
- Pul consult ( Known to Dr Galvez)
12/07/24 S/P Rt Thoracentesis 850 cc by IR for Rt sided pleural effusion
HX NSC Lung CA
- cloudy ivonne pleural fluid
- cyto study pending
- Onco consulted ( known to Dr Manzanares)
HX Constipation
-MiraLAX if needed
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
- Continue prophylactic azithromycin ? Pending Rx reconciliation
History of ocular migraines
Idiopathic pulmonary fibrosis
History of asymptomatic sinus bradycardia
Lumbar spinal stenosis
-continue ibuprofen PRN - Pending Rx reconciliation ?
Hyperlipidemia
- atorvastatin ? Pending Rx reconciliation
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
GERD
-Continue omeprazole
Anxiety
-Continue Ativan
DVT Px: Heparin gtt
Code: DNR confimed by patient in the presence of spouse
IP TLM
[2024-12-08] MEDS: HEPARIN 25000 UNITS/250 ML IV (14:46)
[2024-12-08 14:56] LABS: APTT 25.3 Sec (23.4-35.0)
[2024-12-08 15:04] LABS: COVID-19 Antigen Negative (Negative)
--- NOTE | 2024-12-08 15:06 | CM ---
junior project manager reviewed patient's chart and patient states that he lives with his spouse in a 2 story home, patient is independent with adl's and ambulation, no dme, patient drives, recently patient has been driving less per spouse. Patient has stair
lift to 2nd floor.
junior project manager received a consult to check on pricing for Eliquis and cost of Eliquis for patient is $145 per month, patient is agreeable to this cost and first month free coupon has been provided to patient.
PCP: Dr. Greco
Pharmacy: [facility] in [place]
Plan; Home with spouse when stable.
[2024-12-08 16:39] LABS: TSH Reflex To Free T4 1.53 uIU/ml (0.47-4.68)
--- NOTE | 2024-12-08 17:22 | PTCARENOTE ---
Received patient from ED via stretcher. AAOx3, ambulated to bed with minimal assistance. Assessed and oriented to room. Call tom in close reach.
[2024-12-08] MEDS: ATIVAN 0.5 MG PO (21:20)
[2024-12-08 21:32] LABS: APTT 105.6 Sec (23.4-35.0)
[2024-12-09 00:22] LABS: Procalcitonin 0.05 ng/ml (0.0-0.25)
[2024-12-09 03:35] VITALS: BP 123/75
[2024-12-09 03:47] LABS: APTT 143.6 Sec (23.4-35.0)
--- NOTE | 2024-12-09 06:13 | CON.ONC ---
Consultation
-
Date Consultation Requested: 12/09/24
Date Consultation Performed: 12/09/24
Requesting Provider: Sherly
Performing Provider: Kaylin
Reason for Consultation: PE
Impression
Impression
PE
Lung Ca with POD
Plan
Plan
IV heparin to Eliquis. Will switch to Eliquis this AM.
Outpt F/U Dr. Manzanares to discuss salvage Tx plans.
Await pleural cytology results. Hopefully back by Tuesday appt tiffany Manzanares.
Patient History
History of Present Illness
PCP: Jose Greco; Onco: [place]
CC: pain in the left scapula
HPI: 79 y/o presents with chest pain with radiation to the left scapula that started yesterday morning. Pain was worse when he takes a deep breath, moves, or coughs. Has history chronic dyspnea which is unchanged. A CT angio: Nearly occlusive
embolus in left upper lobe segmental branch as above, most likely acute. Right upper lobe nonocclusive emboli in subsegmental branches as described, most likely subacute. Started on IV heparin. PET CT just done 12/05 shows POD. Is scheduled for
[place] office F/U 12/11 to discuss.
He has noted 40 # weight loss. Multiple lab sicks for aPTT. He says he was just hear for a back ache. No SOB or leg swelling.
Past-Medical/Surgical History
PMH: Pulmonary fibrosis, pulmonary nodules, lung cancer, melanoma, CVA, hypercholesterolemia, ocular migraines, non small cell lung cancer, idiopathic pulmonary fibrosis, asymptomatic sinus bradycardia, lumbar spinal stenosis, hyperlipidemia,
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
PSH: Cataracts, melanoma chest resection, laminectomy
SH:
Year Quit 50 years ago. Former Smoker. Packs per day 15.
Current alcohol user. Patient reports an average of 1 drinks per day.
Marital Status: Patient is
FH:
sister COPD
brother brain cancer
brother COPD
Patient Medication
�Medication �Instructions �Recorded �Confirmed �Last Taken �Type
acetaminophen 500 mg tablet 1,000 mg PO Q6HPRN PRN mild pain 02/28/24 12/08/24 02/28/24 History
(Tylenol Extra Strength)
lorazepam 0.5 mg tablet (Ativan) 0.5 mg PO HSPRN PRN sleep/anxiety 02/28/24 12/08/24 02/28/24 20:00 History
dexamethasone 4 mg tablet 8 mg PO DAILYPRN PRN take day 04/11/24 12/08/24 Unknown History
before and day afr Tx
lidocaine-prilocaine 2.5 %-2.5 % 1 applic topical DAILYPRN PRN 04/11/24 12/08/24 Unknown History
topical cream apply before port access
aspirin 81 mg chewable tablet 81 mg PO DAILY 30 days #30 tabs 04/12/24 12/08/24 Unknown Rx
budesonide-formoterol HFA 160 2 puff inhalation R BID 12/07/24 12/08/24 3 Days Ago History
mcg-4.5 mcg/actuation aerosol ~12/05/24
inhaler (Symbicort)
cyanocobalamin (vitamin B-12) 100 100 mcg PO Q48H 12/07/24 12/08/24 12/07/24 History
mcg tablet (Vitamin B-12)
famotidine 20 mg tablet (Pepcid) 20 mg PO DAILY 12/07/24 12/08/24 Unknown History
ipratropium bromide 21 mcg (0.03 2 spray intranasal DAILY 12/07/24 12/08/24 Unknown History
%) nasal spray
prednisone 20 mg tablet 40 mg PO DAILY 12/07/24 12/08/24 Unknown History
Active Medications
Generic Name Dose Route Start Last Admin
Trade Name Freq PRN Reason Stop Dose Admin
Acetaminophen 650 mg 04/26/25 16:07
Acetaminophen 325 Mg Tablet PO 01/05/25 16:06
Q4HPRN PRN
mild pain/DUNNE/temp> 100.4F
Bisacodyl 10 mg 12/08/24 16:07
Bisacodyl 10 Mg Rectal Suppository RECTAL 01/05/25 16:06
[id number] PRN
constipation
Heparin Sodium 5,200 units 12/08/24 14:31
Heparin 80 Units/Kg Iv Rebolus IV 01/05/25 14:30
PRN PRN
PTT < OR = 64 seconds
Heparin Sodium 2,600 units 12/08/24 14:33
Heparin 40 Units/Kg Iv Rebolus IV 01/05/25 14:32
PRN PRN
PTT = 64.1 to 72.9 seconds
Heparin Sodium 25,000 units in 250 mls @ 0 mls/hr 12/08/24 14:30 12/08/24 14:46
Heparin 19150 Units/250 Ml IV 250 mls
PER PROTOCOL BALDEMAR Administration
Protocol
Per Protocol
Lorazepam 0.5 mg 12/08/24 17:25 12/08/24 21:20
Lorazepam 0.5 Mg Tablet PO 01/05/25 21:59 0.5 mg
HS PRN Administration
for insomnia and anxiety
Polyethylene Glycol 17 grams 12/08/24 16:07
Polyethylene Glycol Powder 17 Grams Packet PO 01/05/25 16:06
DAILYPRN PRN
constipation
Senna/Docusate Sodium 1 tablet 12/08/24 16:07
Docusate W/Senna (Gloria-Colace) Tablet PO 01/05/25 16:06
BIDPRN PRN
constipation
Sodium Chloride 0 flush 12/08/24 17:00
Sodium Chloride 0.9% (Flush) Syringe IV 01/05/25 16:59
PER PROTOCOL BALDEMAR
Review of Systems
-
History Source: Patient
Constitutional: Reports Weight Loss (40 #)
Respiratory: Reports Pleurisy
Cardiac: Reports Chest Pain
Physical Exam
-
General: Comfortable and Cachetic; Negative Respiratory Distress
Cardiology: Normal Sinus Rhythm, S1 and S2
Pulmonary: Clear; Negative Wheezes
Extremities: No C/C/E
Neurology: Non Focal
Labs
Lab Results
WBC 23.2 10^3/uL (4.8-10.8) H 12/08/24 11:59
RBC 3.82 10^6/uL (4.70-6.10) L 12/08/24 11:59
Hgb 12.7 g/dL (13.0-18.0) L 12/08/24 11:59
Hct 38.0 % (39.0-52.0) L 12/08/24 11:59
MCV 99.5 fL (80.0-94.0) H 12/08/24 11:59
MCH 33.2 pg (27.0-31.0) H 12/08/24 11:59
MCHC 33.4 g/dL (33.0-37.0) 12/08/24 11:59
RDW 14.0 % (11.5-14.5) 12/08/24 11:59
Plt Count 206 10^3/uL (130-400) 12/08/24 11:59
MPV 10.6 fL (7.4-10.4) H 12/08/24 11:59
Creatinine 1.4 mg/dL (0.7-1.3) H 12/08/24 11:59
[facility]
[address] [place] [id number]
[phone]

Patient Name: TRUDGEON,BURTON W
: 1945
Unit Number: [id number]
Age/Sex: 79/M
Patient
Location: PET
Order Provider: Artemio Manzanares DO
Exam Service Date: 12/05/24

PET Scan Report
Signed
Order #:[id number]
Exams: PT Pet Wbi W/CT Whole Body
CPT: 27937
Procedure: PT Pet Wbi W/CT Whole Body
IMPRESSION:
1. Interval progression of MULTIFOCAL BLASTIC OSSEOUS METASTATIC DISEASE.
2. Interval increase in multiple irregular shaped FDG avid pulmonary nodules in the right upper and middle lobes with associated increased interstitial disease. Diagnostic possibilities are (1) PROGRESSIVE PULMONARY METASTATIC disease (possibly
LYMPHANGITIC CARCINOMATOSIS) or (2) less likely an inflammatory pneumonitis.
3. New moderate ground-glass opacity in the left upper lobe demonstrating moderate FDG uptake (probably inflammatory or infectious in etiology).
4. New moderate-sized right pleural effusion.
CLINICAL INDICATION: 79-year-old man with right upper lobe lung adenocarcinoma. The patient is undergoing a PET/CT examination for restaging (subsequent treatment strategy).
TECHNIQUE: A whole body PET/CT examination was performed following the intravenous injection of 9.8 mCi F-18 FDG in the left antecubital fossa at 9:05 AM on 12/05/2024. Images were acquired from the level of the top of the skull to the level of the
bottom of the feet. The blood glucose level at the time of injection measured 89 mg/dL. The radiopharmaceutical uptake time measures 63 minutes. Axial, sagittal, and coronal fused reformatted images were obtained. Low-dose CT images were acquired
for attenuation correction purposes only. Automatic exposure control radiation dose reduction technology was utilized.
SUV Measurement Type: SUVmax
Normalization Method: BMI
COMPARISON: Comparison is made with prior PET/CT examinations performed 08/02/2024 and 04/19/2024.
FINDINGS:
HEAD and NECK:
There is no abnormal increased FDG uptake in the head or neck to suggest FDG avid metastatic disease. There is moderate dilatation of the anterior horns of both lateral ventricles. There is mild bilateral frontal lobe volume loss. The cerebellar
tonsils are low-lying extending into the foramen magnum consistent with a Chiari I malformation.
CHEST:
MEDIASTINUM: Mediastinal Blood Pool Reference Background Measurement: SUV max 3.1
There is a left internal jugular chemotherapy Mediport in place. The heart is normal in size. There is mild calcific atherosclerotic plaque in the coronary arteries. There is increased FDG uptake in a right hilar lymph node measuring SUV max 5.6
(previously as max 6.3). There is no abnormal increased FDG uptake in mediastinal, left hilar, supraclavicular, or axillary lymph nodes to suggest FDG avid arlet metastatic disease.
LUNGS: There is a moderate-sized right pleural effusion which appears new from 08/02/2024. There is no evidence for left pleural effusion.
There are irregular shaped part solid and part groundglass pulmonary opacities in the upper lobe of the right lung, one measuring SUV max 6.0 (previously SUV max 3.7. Another right upper lobe opacity measures SUV max 4.4 (previously SUV max 2.1) a
1.8 x 1.3 cm solid opacity in the right middle lobe measures as max 7.6 (previously as max 3.8). There is airspace consolidation in the posterior segment of the right upper lobe measuring SUV max 5.0. An 8 mm pulmonary nodule in the right middle
lobe measures SUV max 3.8. There is a large amount of ground-glass opacity throughout the right lower lobe measuring SUV max 2.9.
There is new ground-glass opacity in the left upper lobe creating a mosaic attenuation pattern measuring SUV max 3.9. There is a moderate amount of subpleural ground-glass opacity in the lingula and left lower lobe measuring SUV max 2.8.
ABDOMEN and PELVIS: Liver Reference Background Measurement: SUV max 3.2
There is no abnormal increased FDG uptake in the liver, adrenal glands, or spleen to suggest FDG avid metastatic disease. There is layering cholelithiasis in the gallbladder. The gallbladder is mildly distended. There is moderate calcific
atherosclerotic plaque in the abdominal aorta. 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 The right common iliac artery measures 1.4 cm in short axis diameter and appears to contain a
chronic dissection with medial displacement of intimal plaque. There is mild bilateral renal cortical volume loss. There are small number of bilateral benign-appearing renal cysts. The prostate gland is mildly to moderately enlarged. There is no
ascites.
SKELETON:
There is a small 1.0 cm blastic osseous metastasis in the medial left pubic bone measuring SUV max 4.7 which appears new. A small blastic osseous metastasis in the right iliac bone measures SUV max 3.1 and has increased in size and FDG uptake. A
small blastic metastasis in the inferior endplate of L2 measures SUV max 3.2. A new small blastic osseous metastasis in the left side of T12 measures SUV max 2.9. There is evidence for a previous L2/L3 laminectomy.
The blastic osseous metastasis in the C5 vertebral body measures SUV max 4.0 and appears new. A blastic metastasis in the T1 vertebral body measures as max 4.1 (previously SUV max 3.7. A blastic osseous metastasis in the T5 vertebral body measures
SUV max 4.6 (previously SUV max 3.1). A blastic osseous metastasis in the right T4 spinous process measures SUV max 4.3 (previously SUV max 2.7). A metastasis in the left T11 transverse process measures as max 5.5 (previously SUV max 2.6 There are
multiple other small blastic osseous metastases in the thoracic spine.
There are multiple blastic osseous metastases in the ribs.
EXTREMITIES:
There is severe asymmetric atrophy of the left semimembranosus muscle.
In accordance with Act 112, known as the Patient Test Results Information Act, a letter will be sent to the patient which notifies the patient that a significant abnormality may exist. The letter will be sent within approximately 20 days of the
date the results were sent to the ordering health care practitioner.
Electronically signed by Matt Suárez MD, 12/05/2024 5:06 PM
Dictated By: Mtat Suárez MD.
Dictated Date & Time: 12/05/24 1457
Signed/Co-Signer By: Matt Suárez MD /
Signed/Co-Signer Date & Time: 12/05/24 1706 /
[id number]
[facility]
[address] [place] [address]
[phone]

Patient Name: BURTON EWING
: 1945
Unit Number: [id number]
Age/Sex: 79/M
Patient
Location: [facility]
Order Provider: Petty Delgadillo MD
Exam Service Date: 12/08/24

Diagnostic Imaging Report
Signed
Order #:[id number]
Exams: CT Chest PE Study
EXAMINATION: CT angiogram of the chest with intravenous contrast.
INDICATION: Left-sided pain. History of lung cancer. Post right thoracentesis 12/07/2024.
TECHNIQUE: Contiguous helical acquisition from the apices of the lungs through the diaphragm was obtained following departmental PE protocol with the intravenous administration of 75 mL of Omnipaque. Axial reconstructions and sagittal and coronal
reformats provided. Volume rendered 3D reconstruction provided. Automated dose reduction technique was utilized.
COMPARISON: 08/29/2024.
FINDINGS:
Vascular: There is satisfactory opacification of the pulmonary arterial distribution. There is embolus within left upper lobe segmental branch to the apicoposterior segment (image #116 series 404). This is nearly occlusive and extends into some of
the subsegmental branches. There is opacification of one distal branch. There is nonocclusive embolus within 2 subsegmental branches to the anterior right upper lobe (image #125 series 404, image #156 series 404). Evaluation of smaller subsegmental
branches is limited at multiple levels by respiratory motion artifact. There is also nonocclusive embolus in segmental branch to the posterior segment of the right upper lobe (image #112 series 404). Within the limitations, no other emboli
identified. Thoracic aorta enhances normally. Small amount of coronary artery calcification.
Lungs: There is minimal residual right pleural fluid, some of which is loculated along superior aspect of the major fissure. Small area of consolidation in the anterolateral right upper lobe related to patient's known ulnar malignancy. Right lung
otherwise shows increased groundglass and interstitial opacities with thickening of the interalveolar septae as well as predominantly basilar reticular opacities with some bleb formation, findings suggestive of edema superimposed on chronic changes
of fibrosis. In the bilateral upper lungs, there are increased interstitial and groundglass opacities with thickening of the interalveolar septae which have significantly increased as compared with the August 2024 examination. While edematous
changes are possible, lymphangitic metastatic disease is also a consideration. In the posterior left upper lobe, there is a 3 mm nodule which is larger as compared with the previous study, therefore suspicious for metastasis (image #40 series 401).
Left lung base findings most consistent with fibrosis as seen previously. There are subcentimeter right hilar lymph nodes. These appear slightly larger as compared with the previous examination.
Mediastinum: Thyroid gland unremarkable. Post left internal jugular Mediport placement. No axillary adenopathy. No mediastinal adenopathy is seen. There are some subcentimeter mediastinal lymph nodes. There is no pericardial effusion.
Bone: Increased size of osteoblastic metastasis at T1. Increased along the transverse process at T4 on the right. Additional thoracic spine osteoblastic metastases which are increased in both size and number as compared with the previous study.
Increased osteoblastic involvement of left-sided ribs.
Limited images through the upper abdomen show simple fluid attenuation cyst at the upper pole of the left kidney which is incompletely imaged. Simple hepatic cyst. No acute abnormalities.
IMPRESSION:
1. Nearly occlusive embolus in left upper lobe segmental branch as above, most likely acute. Right upper lobe nonocclusive emboli in subsegmental branches as described, most likely subacute.
2. Small volume residual right pleural fluid. No pneumothorax. Known right upper lobe malignancy. As above, bilateral lung bases show changes of fibrosis with superimposed edematous changes on the right. The bilateral upper lungs, there is
increased interstitial and groundglass opacity with interstitial thickening. While this could be related to edematous change, lymphangitic metastasis is possible. There is also increase in size of a small nodule in the left upper lobe which is most
likely related to metastasis. There is increased right hilar metastatic lymphadenopathy. There is increased osteoblastic metastatic disease.
Findings communicated to Dr. Petty Delgadillo in the emergency department via [email or web address] at 1400 p.m. 12/08/2024.
Electronically signed by Von Mcleod DO, 12/08/2024 2:02 PM
Vital Signs
Vital Signs
Temp Pulse Resp BP Pulse Ox
98.3 F 74 18 123/75 96
12/09/24 03:35 12/09/24 03:35 12/09/24 03:35 12/09/24 03:35 12/09/24 03:35
[2024-12-09 07:00] VITALS: BP 117/72
[2024-12-09 07:32] LABS: % Basophils 0.2 % (0-2); % Eosinophils 0.5 % (0-6); % Immature Granulocytes 1.9 % (0-0.5); % Lymphocytes 5.7 % (20.5-51.1); % Monocytes 6.6 % (1.7-9.3); % Neutrophils 85.1 % (42.2-75.2); Absolute Eosinophils 0.1 10^3/uL (0-0.7); Absolute Immature Granulocytes 0.4 10^3/uL (0-0.05); Absolute Lymphocytes 1.1 10^3/uL (1.2-3.4); Absolute Monocytes 1.3 10^3/uL (0.1-0.6); Absolute Neutrophils 16.7 10^3/uL (1.4-6.5); Hemoglobin 12.5 g/dL (13.0-18.0); Mean Corp Hgb Conc. 32.9 g/dL (33.0-37.0); Mean Corpuscular Volume 100.3 fL (80.0-94.0); Mean Platelet Volume 11.1 fL (7.4-10.4); Nucleated Red Blood Cells % 0 % (-); Platelet Count 211 10^3/uL (130-400); Red Blood Cell Count 3.79 10^6/uL (4.70-6.10); Red Cell Dist. Width 14.1 % (11.5-14.5); White Blood Cell Count 19.6 10^3/uL (4.8-10.8)
[2024-12-09] MEDS: ELIQUIS 10 MG PO (08:20)
[2024-12-09 08:25] LABS: ALT (SGPT) 16 U/L (0-50); AST (SGOT) 17 U/L (17-59); Albumin 3.5 g/dl (3.5-5.0); Alkaline Phosphatase 104 U/L (38-126); Blood Urea Nitrogen 29 mg/dl (9-20); Calcium 9.1 mg/dl (8.4-10.2); Carbon Dioxide 26 mmol/L (22-30); Chloride 104 mmol/L (98-107); Glucose 75 mg/dl (70-99); Potassium 4.3 mmol/L (3.5-5.1); Sodium 140 mmol/L (135-145); Total Bilirubin 0.6 mg/dl (0.2-1.3); eGFR 55.88
--- NOTE | 2024-12-09 10:02 | W.DCSUMMARY ---
Discharge Summary
Discharge Data
Date of Admission: 12/08/24
Date of Discharge: 12/09/24
-
Pending Results: No
Hospital Course
Mr. Hernandez is a 79-year-old male with a medical history of non-small cell lung cancer, idiopathic pulmonary fibrosis, melanoma, COPD, arthritis, and GERD who presented with left scapular pain. His symptoms were worse with movement and deep
inspiration. CT angiography showed nearly occlusive embolus in the left upper lobe segmental branch which appeared acute, and a right upper lobe nonocclusive emboli in the subsegmental branches most likely subacute. These pulmonary emboli are
considered provoked in the setting of known active malignancy. He was started on anticoagulation with IV heparin drip and admitted for further evaluation and management.
He actively follows with his oncologist, Dr. Manzanares, for ongoing management of his progressive multifocal blastic osseous metastatic disease. He recently underwent a right thoracentesis 12/07 for a moderate-sized pleural effusion. Pathology is
pending and he has an appointment this week with Dr. Manzanares on 12/11. He was evaluated inpatient by Dr. Manzanares's colleague Dr. Ewing who recommended transition to oral anticoagulation with Eliquis and outpatient follow-up. He has supplemental oxygen
at home as needed. He will be discharged to home with his , Nadine, who is at bedside. He was medically stable at time of hospital discharge.
General: No Apparent Distress, Comfortable and Conversant
HEENT: NormoCephalic, Moist mucous membranes, Atraumatic
Respiratory: Clear and Non Labored Respirations
Cardiac: S1/S2 and Regular Rhythm; No Rub or Gallop
GI: Soft, Non Tender, Non Distended and Normal Bowel Sounds
Musculoskeletal: No Edema, no deformity, decreased muscle bulk throughout
: NO Delgadillo
Neuro: Awake, Alert, Nonfocal/grossly intact
Psych: Calm and Intact Judgment/Insight
Discharge Plan
-
Patient Disposition: Home (Routine Discharge)
Discharge Diagnosis/Procedures: Bilateral pulmonary emboli
Diet: Regular
Activity: With assistance and As tolerated
Other Services: PT
Activity Restrictions/Additional Instructions:
Mr. Hernandez is a 79-year-old male with a medical history of non-small cell lung cancer, idiopathic pulmonary fibrosis, melanoma, COPD, arthritis, and GERD who presented with left scapular pain. His symptoms were worse with movement and deep
inspiration. CT angiography showed nearly occlusive embolus in the left upper lobe segmental branch which appeared acute, and a right upper lobe nonocclusive emboli in the subsegmental branches most likely subacute. These pulmonary emboli are
considered provoked in the setting of known active malignancy. He was started on anticoagulation with IV heparin drip and admitted for further evaluation and management.
He actively follows with his oncologist, Dr. Manzanares, for ongoing management of his progressive multifocal blastic osseous metastatic disease. He recently underwent a right thoracentesis 12/07 for a moderate-sized pleural effusion. Pathology is
pending and he has an appointment this week with Dr. Manzanares on 12/11. He was evaluated inpatient by Dr. Manzanares's colleague Dr. Ewing who recommended transition to oral anticoagulation with Eliquis and outpatient follow-up. He has supplemental oxygen
at home as needed. He will be discharged to home with his , Nadine, who is at bedside. He was medically stable at time of hospital discharge.
Referrals:
Artemio Manzanares, DO [Active] - 12/11/24
Liam Greco MD [Family Provider] -
Prescriptions:
New
Eliquis DVT-PE Treat 30D Start 5 mg (74 tabs) tablets,dose pack
See Rx Instructions .ROUTE .COMPLEX Qty: 74 0RF
Rx Instructions:
orally per package directions
Continued
acetaminophen [Tylenol Extra Strength] 500 MG tablet
1,000 mg PO Q6HPRN PRN (Reason: mild pain)
lorazepam [Ativan] 0.5 mg Tablet
0.5 mg PO HSPRN PRN (Reason: sleep/anxiety)
lidocaine-prilocaine 2.5-2.5 % Cream
1 applic TOPICAL DAILYPRN PRN (Reason: apply before port access)
dexamethasone 4 mg Tablet
8 mg PO DAILYPRN PRN (Reason: take day before and day afr Tx)
cyanocobalamin (vitamin B-12) [Vitamin B-12] 100 mcg Tablet
100 mcg PO Q48H
prednisone 20 mg Tablet
40 mg PO DAILY
famotidine [Pepcid] 20 mg Tablet
20 mg PO DAILY
ipratropium bromide 21 mcg (0.03 %) [place],Non-Aerosol
2 spray INTRANASAL DAILY
budesonide-formoterol [Symbicort] 160-4.5 mcg/actuation Hfa Aerosol Inhaler
2 puff INHALATION R BID
Discontinued
aspirin 81 mg Tablet,Chewable
81 mg PO DAILY 30 Days Qty: 30 0RF
Discharge Orders:
Discharge Patient (As Directed); Ordered 12/09/24
Ordered By: Juno Andrade
Discharge Date and Time
Print Language: FAROESE
== END 2024-12-09 10:39 | disposition home or self-care (01) | DRG 176 ==
LOC: 4 WEST ACU 14:44
PROVIDERS: Clinical Nurse Specialist Family Health; ADMITTING PHYSICIAN Internal Medicine; ATTENDING PHYSICIAN Internal Medicine; CONSULT PHYSICIAN Internal Medicine Hematology & Oncology; EMERGENCY PHYSICIAN Emergency Medicine; FAMILY PHYSICIAN Internal Medicine
DX: I26.99 Other pulmonary embolism without acute cor pulmonale (principal); C34.11 Malignant neoplasm of upper lobe, right bronchus or lung; C77.1 Secondary and unspecified malignant neoplasm of intrathoracic lymph nodes; C79.51 Secondary malignant neoplasm of bone; Z66 Do not resuscitate; E78.00 Pure hypercholesterolemia, unspecified; J44.9 Chronic obstructive pulmonary disease, unspecified; I71.43 Infrarenal abdominal aortic aneurysm, without rupture; J84.112 Idiopathic pulmonary fibrosis; I25.10 Atherosclerotic heart disease of native coronary artery without angina pectoris; G43.109 Migraine with aura, not intractable, without status migrainosus; K21.9 Gastro-esophageal reflux disease without esophagitis; Z99.81 Dependence on supplemental oxygen; Z87.891 Personal history of nicotine dependence; Z86.73 Personal history of transient ischemic attack (TIA), and cerebral infarction without residual deficits; Z85.820 Personal history of malignant melanoma of skin; Z88.5 Allergy status to narcotic agent; Z79.01 Long term (current) use of anticoagulants; Z79.899 Other long term (current) drug therapy; Z79.51 Long term (current) use of inhaled steroids; Z79.82 Long term (current) use of aspirin; Z82.5 Family history of asthma and other chronic lower respiratory diseases; Z11.52 Encounter for screening for COVID-19
CPT/HCPCS: 71275; 80053; 83605; 83880; 84145; 84443; 84484; 85025; 85027; 85730; 87040; 87502; 87811; 93005; 94760; 96365; 96366; 99285; Q9967

== ENCOUNTER → 2024-12-19 14:36 | Outpatient (REF) | payer OTHER, SELFPAY | LOC: HWRAD 14:36 | PROVIDERS: ATTENDING PHYSICIAN Nurse Practitioner Adult Health; FAMILY PHYSICIAN Internal Medicine; REFERRING PHYSICIAN Internal Medicine Critical Care Medicine | DX: C34.11 Malignant neoplasm of upper lobe, right bronchus or lung (principal); N17.8 Other acute kidney failure | CPT/HCPCS: 71046 ==